=== PATIENT | male | born 1990 | race Caucasian/White ===

== ENCOUNTER 2021-11-15 09:51 | Emergency (ER) | payer SELFPAY ==
[2021-11-15] MEDS ORDERED: MECLIZINE HCL 12.5 MG TAB ONE (10:17)
[2021-11-15 10:36] LABS: Absolute Lymphocytes (CBC) 3.6 K/uL (0.7-4.9); Hematocrit 46.2 % (39.6-49.0); Lymphocytes % 36.3 % (15.3-44.8); MCV 90.8 fL (80-100); MPV 7.9 fL (7.6-11.3); RBC Red Blood Cell Count 5.09 M/uL (4.33-5.43)
--- NOTE | 2021-11-15 10:44 | RAD REPORT ---
EXAM DESCRIPTION: CT - Head Brain Wo Cont - 11/15/2021 10:15 am CLINICAL HISTORY: dizziness COMPARISON: No comparisons TECHNIQUE: All CT scans are performed using dose optimization technique as appropriate and may inclu de automated exposure control or mA/KV adjustment according to patient size. FINDINGS: No intracranial hemorrhage, hydrocephalus or extra-axial fluid collection.No areas of brai n edema or evidence of midline shift. The paranasal sinuses and mastoids are clear. The calvarium is intact. IMPRESSION: No acute intracranial abnormality.
--- NOTE | 2021-11-15 10:55 | RAD REPORT ---
EXAM DESCRIPTION: RAD - Chest Single View - 11/15/2021 10:46 am CLINICAL HISTORY: CHEST PAIN COMPARISON: No comparisons FINDINGS: Lines: None. Lungs: No evidence of edema or pneumonia. Pleural: No significant pleural effusions or pneumothorax. Cardiac: The heart size is within normal limits. Mediastinum: Within normal limits. Bones: No acute fractures. Other: None IMPRESSION: No acute cardiopulmonary disease.
[2021-11-15 11:19] LABS: ALT/SGPT 37 U/L (12-78); AST/SGOT 22 U/L (15-37); Albumin 4.2 g/dL (3.4-5.0); Alkaline Phosphatase 62 U/L (45-117); BUN Blood Urea Nitrogen 11 mg/dL (7-18); Bicarbonate 31 mmol/L (21-32); Bilirubin Direct 0.3 mg/dL (0-0.2); Bilirubin Total 1.2 mg/dL (0.2-1.0); Glomerular Filtration Rate 89 ml/min (=/>90); Glucose Level 112 mg/dL (74-106); Magnesium 2.2 mg/dL (1.8-2.4); NT PRO-BNP < 5 pg/mL (<125); Potassium 4.3 mmol/L (3.5-5.1); Protein, Total 7.6 g/dL (6.4-8.2); Sodium Level 139 mmol/L (136-145); Troponin High Sensitivity 3.5 pg/mL (<58.9)
[2021-11-15] MEDS ORDERED: LORAZEPAM 1 MG TABLET ONE (11:36)
[2021-11-15 13:13] LABS: Protime INR 0.99
--- NOTE | 2021-11-15 14:07 | RAD REPORT ---
EXAM DESCRIPTION: CT - Chest For Pe Angio - 11/15/2021 1:40 pm CLINICAL HISTORY: Chest pain. shortness of breath, chest pain, elevated d-dimer COMPARISON: <Comparisons> TECHNIQUE: CT angiogram of the pulmonary arteries was performed with MIP. All CT scans are performed using dose optimization technique as appropriate and may include automated exposure control or mA/KV adjustment according to patient size. FINDINGS: No evidence of pulmonary thromboembolism. No acute aortic finding demonstrated. The lungs are clear. No significant pericardial or pleural fluid. No concerning bony finding. IMPRESSION: No evidence of pulmonary thromboembolism. No acute lung findings.
--- NOTE | 2021-11-15 14:40 | ER ---
Nurse's Notes [facility] Name: Azeem Singh Age: 30 yrs Sex: Male : 1990 Arrival Date: 11/15/2021 Time: 09:54 Bed 7 Private MD: Diagnosis: Chest pain, unspecified;Palpitations Presentation: 11/15 09:57 Chief complaint: Patient states: I have been having chest pain for the last few weeks bm7 and my arm goes numb and I feel like my heart is skipping a beat. Coronavirus screen: At this time, the client does not indicate any symptoms associated with coronavirus-19. Ebola Screen: No symptoms or risks identified at this time. Initial Sepsis Screen: Does the patient meet any 2 criteria? No. Patient's initial sepsis screen is negative. Does the patient have a suspected source of infection? No. Patient's initial sepsis screen is negative. Risk Assessment: Do you want to hurt yourself or someone else? Patient reports no desire to harm self or others. Onset of symptoms is unknown. 09:57 Method Of Arrival: Ambulatory 7 09:57 Acuity: [place] 3 bm7 Triage Assessment: 09:59 General: Appears in no apparent distress. comfortable, Behavior is anxious. Pain: bm7 Denies pain. EENT: No deficits noted. No signs and/or symptoms were reported regarding the EENT system. Neuro: No deficits noted. Cardiovascular: Reports chest pain, palpitations, earlier today but not at the moment Denies shortness of breath, syncope, vomiting, Heart tones S1 S2 present Capillary refill < 3 seconds Patient's skin is warm and dry. Chest pain is denied is described as vague, pt not having any chest pain at the moment just earlier . Respiratory: No deficits noted. Denies cough, shortness of breath at rest, on exertion. GI: No deficits noted. No signs and/or symptoms were reported involving the gastrointestinal system. : No deficits noted. No signs and/or symptoms were reported regarding the genitourinary system. Derm: No deficits noted. No signs and/or symptoms reported regarding the dermatologic system. Musculoskeletal: No deficits noted. No signs and/or symptoms reported regarding the musculoskeletal system. Historical: - Allergies: :59 No Known Allergies; bm7 - Home Meds: :59 None [Active]; bm7 - PMHx: 09:59 None; bm7 - PSHx: 09:59 None; bm7 - Immunization history:: Adult Immunizations up to date, Client reports having NOT received the Covid vaccine. - Social history:: Smoking status: Reported history of juuling and/or vaping. Screenin:29 Abuse screen: Denies threats or abuse. Denies injuries from another. Nutritional mb8 screening: No deficits noted. Tuberculosis screening: No symptoms or risk factors identified. Fall Risk None identified. Assessment: 10:27 General: Appears in no apparent distress. comfortable, Behavior is cooperative, mb8 anxious. Pain: Complains of pain in chest Pain does not radiate. Pain began years ago. Cardiovascular: Reports chest pain, shortness of breath, Denies fatigue, lightheadedness, nausea, palpitations, syncope, vomiting, Heart tones S1 S2 Capillary refill < 3 seconds Pulses are all present. are 3+ in right radial artery and left radial artery Rhythm is sinus rhythm Chest pain is described as mild, is located in chest wall. Respiratory: No deficits noted. Breath sounds are clear bilaterally. 11:31 Reassessment: Patient and/or family updated on plan of care and expected duration. Pain mb8 level reassessed. Patient is alert, oriented x 3, equal unlabored respirations, skin warm/dry/pink. Patient states feeling better. 12:32 Reassessment: Patient and/or family updated on plan of care and expected duration. Pain mb8 level reassessed. Patient is alert, oriented x 3, equal unlabored respirations, skin warm/dry/pink. Patient denies pain at this time. Patient states feeling better. 13:32 Reassessment: Patient and/or family updated on plan of care and expected duration. Pain mb8 level reassessed. Patient is alert, oriented x 3, equal unlabored respirations, skin warm/dry/pink. Patient denies pain at this time. Patient states feeling better. 14:28 Reassessment: Patient and/or family updated on plan of care and expected duration. Pain mb8 level reassessed. Patient is alert, oriented x 3, equal unlabored respirations, skin warm/dry/pink. Patient states feeling better. Vital Signs: 09:57 BP 123 / 96; Pulse 83; Resp 16; Temp 98.2(TE); Pulse Ox 100% on R/A; Weight 74.84 kg bm7 (R); Height 5 ft. 10 in. (177.80 cm); Pain 0/10; 10:28 BP 122 / 93; Pulse 65; Resp 22; Pulse Ox 100% ; Pain 4/10; mb8 11:31 BP 143 / 99; Pulse 83; Resp 20; Pulse Ox 100% ; mb8 12:32 BP 123 / 86; Pulse 100; Resp 18; Pulse Ox 100% ; Pain 0/10; mb8 13:32 BP 125 / 93; Pulse 97; Resp 16; Pulse Ox 97% on R/A; Pain 0/10; mb8 14:28 BP 122 / 76; Pulse 101; Resp 16; Pulse Ox 99% ; Pain 0/10; mb8 09:57 Body Mass Index 23.67 (74.84 kg, 177.80 cm) bm7 Vitals: 10:28 Cardiac Rhythm Assessment Regular Sinus rhythm. mb8 13:32 Cardiac Rhythm Assessment Sinus rhythm. mb8 ED Course: 09:54 Patient arrived in ED. mr 09:59 Jovan Hardy PA is PHCP. jmm 09:59 Topher Marina DO is Attending Physician. jmm 09:59 Triage completed. bm7 09:59 Arm band placed on left wrist. bm7 10:03 Yang Avila, RN is Primary Nurse. mb8 10:17 CT Head Brain wo Cont In Process Unspecified. EDMS 10:30 Patient has correct armband on for positive identification. Placed in gown. Bed in low mb8 position. Call light in reach. Side rails up X2. Client placed on continuous cardiac and pulse oximetry monitoring. NIBP monitoring applied. residential monitor on. 10:30 No provider procedures requiring assistance completed. Patient maintains SpO2 mb8 saturation greater than 95% on room air. 10:48 XRAY Chest (1 view) In Process Unspecified. EDMS 13:42 CT Chest For PE Angio In Process Unspecified. EDMS 14:38 Hussain Valdes MD is Referral Physician. jmm 15:17 IV discontinued, intact, bleeding controlled, No redness/swelling at site. Pressure mb8 dressing applied. Administered Medications: 10:12 Drug: Meclizine 50 mg Route: PO; jd3 11:31 Follow up: Response: No adverse reaction mb8 11:30 Drug: Ativan (LORazepam) 1 mg Route: PO; mb8 Medication: 10:28 VIS not applicable for this client. mb8 Outcome: 14:39 Discharge ordered by . asya 15:18 Discharged to home ambulatory. mb8 15:18 Condition: stable 15:18 Discharge instructions given to patient, Instructed on discharge instructions, follow up and referral plans. no drinking with medication, no driving heavy equipment, medication usage, Demonstrated understanding of instructions, follow-up care, medications, Prescriptions given X 1. 15:18 Patient left the ED. mb8 Signatures: Dispatcher [employer] EDMS Jovan Hardy PA PA jmm Rivera, Mary mr SatnamPravin RN RN [email or web address] Ese Mcfarlane, RN RN bm7 Yang Avila RN RN mb8
--- NOTE | 2021-11-15 14:40 | EDPHYS ---
Physician Documentation [facility] Name: Azeem Singh Age: 30 yrs Sex: Male : 1990 Arrival Date: 11/15/2021 Time: 09:54 Bed 7 Private MD: ED Physician Topher Marina HPI: 11/15 10:03 This 30 yrs old Male presents to ER via Ambulatory with complaints of Chest Pain. jmm 10:03 Onset: The symptoms/episode began/occurred gradually. This is a 30-year-old male with jmm no known chronic medical conditions the presents emerged part with complaints of chest pain and palpitations beginning this morning around 930. Patient has had intermittent episodes similar to this since he was 23 he states. Patient did have an outpatient evaluation by cardiology which did not yield any diagnoses. Patient also states having some shortness of breath. Pain will radiate to his left arm. Also complains of dizziness which she describes as the room spinning. Historical: - Allergies: 09:59 No Known Allergies; bm7 - Home Meds: 09:59 None [Active]; bm7 - PMHx: 09:59 None; bm7 - PSHx: 09:59 None; bm7 - Immunization history:: Adult Immunizations up to date, Client reports having NOT received the Covid vaccine. - Social history:: Smoking status: Reported history of juuling and/or vaping. ROS: 10:03 Constitutional: Negative for fever, chills, and weight loss. jmm 10:03 Cardiovascular: Positive for chest pain. 10:03 Respiratory: Positive for shortness of breath. 10:03 Neuro: Positive for dizziness. 10:03 All other systems are negative. Exam: 10:03 Constitutional: This is a well developed, well nourished patient who is awake, alert, jmm and in no acute distress. Head/Face: atraumatic. 10:03 ENT: Moist Mucus Membranes Neck: Trachea midline, Supple Chest/axilla: Normal chest wall appearance and motion. 10:03 Abdomen/GI: Non distended Back: Normal ROM Skin: General appearance color normal MS/ Extremity: Moves all extremities, no obvious deformities appreciated, no edema noted to the lower extremities Neuro: Awake and alert Psych: Behavior is normal, Mood is normal, Patient is cooperative and pleasant 10:03 Eyes: Nystagmus: nystagmus with fast component noted, bilaterally. 10:03 Cardiovascular: Rate: normal, Rhythm: regular. 10:03 Respiratory: the patient does not display signs of respiratory distress, Respirations: normal, Breath sounds: are clear throughout. 10:40 ECG was reviewed by the Attending Physician. [facility] Vital Signs: 09:57 BP 123 / 96; Pulse 83; Resp 16; Temp 98.2(TE); Pulse Ox 100% on R/A; Weight 74.84 kg bm7 (R); Height 5 ft. 10 in. (177.80 cm); Pain 0/10; 10:28 BP 122 / 93; Pulse 65; Resp 22; Pulse Ox 100% ; Pain 4/10; mb8 11:31 BP 143 / 99; Pulse 83; Resp 20; Pulse Ox 100% ; mb8 12:32 BP 123 / 86; Pulse 100; Resp 18; Pulse Ox 100% ; Pain 0/10; mb8 13:32 BP 125 / 93; Pulse 97; Resp 16; Pulse Ox 97% on R/A; Pain 0/10; mb8 14:28 BP 122 / 76; Pulse 101; Resp 16; Pulse Ox 99% ; Pain 0/10; mb8 09:57 Body Mass Index 23.67 (74.84 kg, 177.80 cm) bm7 MDM: 10:03 Patient medically screened. [facility] 14:38 Data reviewed: vital signs, nurses notes. Counseling: I had a detailed discussion with [facility] the patient and/or guardian regarding: the historical points, exam findings, and any diagnostic results supporting the discharge/admit diagnosis, lab results, radiology results, the need for outpatient follow up, to return to the emergency department if symptoms worsen or persist or if there are any questions or concerns that arise at home. 11/15 10:04 Order name: Basic Metabolic Panel; Complete Time: 11:24 [facility] 11/15 10:04 Order name: CBC with Diff; Complete Time: 10:58 [facility] 11/15 10:04 Order name: D-Dimer; Complete Time: 13:24 [facility] 11/15 10:04 Order name: LFT's; Complete Time: 11:24 [facility] 11/15 10:04 Order name: Magnesium; Complete Time: 11:24 [facility] 11/15 10:04 Order name: NT PRO-BNP; Complete Time: 11:24 [facility] 11/15 10:04 Order name: PT-INR; Complete Time: 13:24 [facility] 11/15 10:04 Order name: Troponin HS; Complete Time: 11:24 [facility] 11/15 10:04 Order name: XRAY Chest (1 view); Complete Time: 10:58 [facility] 11/15 10:04 Order name: CT Head Brain wo Cont; Complete Time: 10:58 [facility] 11/15 11:47 Order name: Troponin HS: draw at 1; Complete Time: 13:32 [facility] 11/15 13:25 Order name: CT Chest For PE Angio; Complete Time: 14:15 [facility] 11/15 10:04 Order name: EKG; Complete Time: 10:05 [facility] 11/15 10:04 Order name: Cardiac monitoring; Complete Time: 10:14 [facility] 11/15 10:04 Order name: EKG - Nurse/Tech; Complete Time: 10:14 [facility] 11/15 10:04 Order name: IV Saline Lock; Complete Time: 10:27 [facility] 11/15 10:04 Order name: Labs collected and sent; Complete Time: 10:27 [facility] 11/15 10:04 Order name: O2 Per Protocol; Complete Time: 10:14 [facility] 11/15 10:04 Order name: O2 Sat Monitoring; Complete Time: 10:14 [facility] 11/15 10:39 Order name: Labs - recollect needed: recollect blue and green top; Complete Time: 10:51 bd EC:40 Rate is 100 beats/min. QRS [place] is Normal. [place] interval is normal. QRS interval is jmm normal. QT interval is normal. No Q waves. T waves are Normal. No ST changes noted. Reviewed by me. Administered Medications: 10:12 Drug: Meclizine 50 mg Route: PO; jd3 11:31 Follow up: Response: No adverse reaction mb8 11:30 Drug: Ativan (LORazepam) 1 mg Route: PO; mb8 Disposition: 22:58 Co-signature as Attending Physician, Topher Marina DO I agree with the assessment and ms3 plan of care. Disposition Summary: 11/15/21 14:39 Discharge Ordered Location: Home [facility] Condition: Stable jm Diagnosis - Chest pain, unspecified jmm - Palpitations jmm Followup: jmm - With: Hussain Valdes MD - When: 2 - 3 days - Reason: Recheck today's complaints, Continuance of care, Re-evaluation by your physician Discharge Instructions: - Discharge Summary Sheet jmm - Nonspecific Chest Pain, Adult jmm - Palpitations jm Forms: - Medication Reconciliation Form jmm - Thank You Letter jmm - Antibiotic Education jmm - Prescription Opioid Use jmm Prescriptions: - Hydroxyzine HCl 25 mg Oral Tablet - take 1 tablet by ORAL route every 6 hours As needed; 30 tablet; Refills: 0, jmm Product Selection Permitted Signatures: Dispatcher [employer] EDMS Mary Roberto Joel, PA PA jmm Pravin Hay RN RN jd3 Topher Marina DO DO ms3 Ese Mcfarlane, RN RN bm7 Yang Avila RN RN mb8
[2021-11-15 15:24] VITALS: TEMP 98.2
[2021-11-15 15:38] VITALS: BP 122/76; O2SAT 99
--- NOTE | 2021-11-16 10:54 | EKG ---
Test Date: 2021-11-15 Test Time: 10:12:11 Collection Manager: MEASUREMENT RESULTS: Intervals: Rate: 100 MA: 126 QRSD: 82 QT: 328 QTc: 423 [place]: P: 66 MA: 126 QRS: 76 T: 59 INTERPRETIVE STATEMENTS: Normal sinus rhythm Normal ECG No previous ECG available for comparison Electronically Signed On 11-16-21 10:50:30 CDT by Hussain Valdes
== END 2021-11-15 15:18 | disposition home or self-care (01) ==
LOC: ER 09:51
DX: R07.9 Chest pain, unspecified (principal); R00.2 Palpitations; R42 Dizziness and giddiness
CPT/HCPCS: 36415; 70450; 71045; 71275; 80048; 80076; 83735; 83880; 84484; 85025; 85379; 85610; 93005; 99284; J8597; Q9967

== ENCOUNTER 2022-02-07 00:58 | Emergency (ER) | payer SELFPAY ==
[2022-02-07] MEDS ORDERED: NA CHLORIDE 0.9% 1,000 ML ONE (01:26)
[2022-02-07] MEDS ORDERED: LORazepam 2 MG/ML VIAL ONE (01:26)
[2022-02-07 01:41] LABS: Urine Blood Negative (Negative); Urine Glucose Negative (Negative); Urine Protein Negative (Negative); Urine pH 7.5 (5.0-7.0)
[2022-02-07 02:06] LABS: Absolute Lymphocytes (CBC) 3.8 K/uL (0.7-4.9); Hematocrit 45.3 % (39.6-49.0); Lymphocytes % 48.7 % (15.3-44.8); MCV 92.1 fL (80-100); MPV 8.2 fL (7.6-11.3); RBC Red Blood Cell Count 4.92 M/uL (4.33-5.43)
[2022-02-07 02:07] LABS: Protime INR 0.92
[2022-02-07 02:07] LABS: Barbiturates NEGATIVE (NEGATIVE); Benzodiazepines NEGATIVE (NEGATIVE); Cocaine NEGATIVE (NEGATIVE); METHAMPHETAM NEGATIVE (NEGATIVE); Methadone NEGATIVE (NEGATIVE); Opiates NEGATIVE (NEGATIVE); Phencyclidine NEGATIVE (NEGATIVE); THC Cannibis NEGATIVE (NEGATIVE)
[2022-02-07 02:20] LABS: ALT/SGPT 39 U/L (12-78); AST/SGOT 17 U/L (15-37); Albumin 4.1 g/dL (3.4-5.0); Alkaline Phosphatase 70 U/L (45-117); BUN Blood Urea Nitrogen 9 mg/dL (7-18); Bicarbonate 30 mmol/L (21-32); Bilirubin Direct 0.1 mg/dL (0-0.2); Bilirubin Total 0.7 mg/dL (0.2-1.0); Glomerular Filtration Rate 87 ml/min (=/>90); Glucose Level 130 mg/dL (74-106); Potassium 3.1 mmol/L (3.5-5.1); Protein, Total 7.6 g/dL (6.4-8.2); Sodium Level 138 mmol/L (136-145)
[2022-02-07 02:51] LABS: Blood Morphology Comment NOT SEEN (NOT SEEN); Platelet Estimate ADEQ
[2022-02-07] MEDS ORDERED: POTASSIUM 25 MEQ EFFERV TAB ONE (03:09)
--- NOTE | 2022-02-07 03:19 | EDPHYS ---
Physician Documentation [facility] Name: Azeem Singh Age: 31 yrs Sex: Male : 1990 Arrival Date: 02/07/2022 Time: 00:58 Bed 6 Private MD: ED Physician Samir Chavez HPI: 02/06 01:30 This 31 yrs old Male presents to ER via Ambulatory with complaints of Breathing cp Difficulty. 01:30 The patient has shortness of breath at rest. Onset: The symptoms/episode began/occurred cp suddenly, tonight while lying down in bed. Duration: The symptoms are continuous, and are unchanged since they started. Associated signs and symptoms: Pertinent positives: numbness in extremities, left arm and left foot and right foot, Pertinent negatives: chest pain, non-productive cough, productive cough, diaphoresis, fever, vomiting. 02/07 01:30 Severity of symptoms: in the emergency department the symptoms are unchanged despite cp home interventions. Historical: - Allergies: 01:04 No Known Allergies; tw5 - Home Meds: 01:04 Unable to obtain [Active]; tw5 - PMHx: 01:04 Anxiety; tw5 - PSHx: 01:04 None; tw5 - Immunization history:: Flu vaccine is not up to date. It has been more than one year since last vaccine. - Social history:: Smoking status: Reported history of juuling and/or vaping. Patient uses. ROS: 01:33 Constitutional: Negative for body aches, chills, fever, poor PO intake. cp 01:33 Eyes: Negative for injury, pain, redness, and discharge. cp 01:33 ENT: Negative for drainage from ear(s), ear pain, sore throat, difficulty swallowing, difficulty handling secretions. 01:33 Cardiovascular: Negative for chest pain. 01:33 Respiratory: Positive for shortness of breath, at rest. Negative for cough, wheezing. 01:33 Abdomen/GI: Negative for abdominal pain, vomiting, diarrhea, constipation. 01:33 Neuro: Positive for numbness, of the right foot, left foot and left arm, Negative for altered mental status, headache, weakness. 01:33 All other systems are negative. Exam: 01:35 ECG was reviewed by the Attending Physician. cp 01:40 Constitutional: The patient appears in no acute distress, alert, awake, cp non-diaphoretic, non-toxic, well developed, well nourished, anxious. 01:40 Head/Face: Normocephalic, atraumatic. cp 01:40 Eyes: Periorbital structures: appear normal, Pupils: equal, round, and reactive to light and accomodation, Extraocular movements: intact throughout, Conjunctiva: normal, no exudate, no injection, Sclera: no appreciated abnormality, Lids and lashes: appear normal, bilaterally. 01:40 ENT: External ear(s): are unremarkable, Nose: is normal, Mouth: Lips: moist, Oral mucosa: pink and intact, moist, Posterior pharynx: Airway: no evidence of obstruction, patent, swelling, is not appreciated, erythema, is not appreciated, exudate, is not appreciated. 01:40 Neck: ROM/movement: is normal, is supple, without pain, no range of motions limitations, no nuchal rigidity. 01:40 Chest/axilla: Inspection: normal, Palpation: is normal, no crepitus, no tenderness. 01:40 Cardiovascular: Rate: tachycardic, Rhythm: regular. 01:40 Respiratory: the patient does not display signs of respiratory distress, Respirations: normal, no use of accessory muscles, no retractions, labored breathing, is not present, Breath sounds: are clear throughout, no decreased breath sounds, no stridor, no wheezing. 01:40 Abdomen/GI: Inspection: abdomen appears normal, Palpation: abdomen is soft and non-tender, in all quadrants. 01:40 Neuro: Orientation: to person, place \T\ time. Mentation: is normal, Cerebellar function: is grossly normal, Motor: moves all fours, strength is normal, Sensation: numbness, that is mild, of the right foot, left foot and left arm, Gait: is steady. 01:40 Psych: Behavior/mood is cooperative, anxious, Judgement / Insight is normal. Delusions/hallucinations are not present. Vital Signs: 00:59 BP 131 / 96; Pulse 123; Resp 18; Temp 98.7; Pulse Ox 95% on R/A; Weight 81.65 kg; tw5 Height 5 ft. 9 in. (175.26 cm); Pain 0/10; 02:03 BP 147 / 95; Pulse 94; Resp 15 S; Pulse Ox 96% on R/A; as6 02:53 BP 112 / 87; Pulse 87; Resp 16 S; Pulse Ox 98% on R/A; as6 00:59 Body Mass Index 26.58 (81.65 kg, 175.26 cm) tw5 MDM: 01:19 Patient medically screened. cp 03:19 Data reviewed: vital signs, nurses notes, lab test result(s), EKG, radiologic studies, cp plain films. 03:19 Differential diagnosis: Anxiety Reaction asthma, pneumonia, Pneumothorax Pulmonary cp Embolism. Test interpretation: by ED physician or midlevel provider: ECG, plain radiologic studies. Counseling: I had a detailed discussion with the patient and/or guardian regarding: the historical points, exam findings, and any diagnostic results supporting the discharge/admit diagnosis, lab results, radiology results, the need for outpatient follow up, a family practitioner, to return to the emergency department if symptoms worsen or persist or if there are any questions or concerns that arise at home. ED course: VSS. Patient reports symptoms markedly improved. Will discharge to home for continued monitoring. 02/07 01:22 Order name: Acetaminophen; Complete Time: 02:54 cp 02/07 01:22 Order name: Basic Metabolic Panel; Complete Time: 02:54 cp 02/07 02:54 Interpretation: Normal except: K 3.1; GLUC 130; GFR 87. cp 02/07 01:22 Order name: CBC with Diff; Complete Time: 02:54 cp 02/07 02:54 Interpretation: Normal except: RDW 12.0; ASHU% 40.6; LYM% 48.7. cp 02/07 01:22 Order name: ETOH Level; Complete Time: 02:54 cp 02/07 01:22 Order name: Hepatic Function; Complete Time: 02:54 cp 02/07 01:22 Order name: PT-INR; Complete Time: 02:54 cp 02/07 01:22 Order name: Ptt, Activated; Complete Time: 02:54 cp 02/07 01:22 Order name: Salicylate; Complete Time: 02:54 cp 02/07 01:22 Order name: Urine Drug Screen; Complete Time: 02:54 cp 02/07 02:55 Interpretation: Reviewed. 02/07 01:42 Order name: Urine Dipstick-Ancillary; Complete Time: 02:54 EDMS 02/07 02:22 Order name: Manual Differential; Complete Time: 02:54 EDMS 02/07 02:55 Interpretation: Normal except: SEGS 35; BANDS [F] 2. cp 02/07 02:56 Order name: XRAY Chest (1 view) cp 02/07 01:22 Order name: EKG; Complete Time: 01:22 cp 02/07 01:22 Order name: EKG - Nurse/Tech; Complete Time: 01:37 cp 02/07 01:22 Order name: IV Saline Lock; Complete Time: :37 cp 02/07 01:22 Order name: Labs collected and sent; Complete Time: :37 cp 02/07 01:22 Order name: Suicide Screening ([place]); Complete Time: :37 cp 02/07 01:22 Order name: Urine Dipstick-Ancillary (obtain specimen); Complete Time: :37 cp EC:35 Rate is 114 beats/min. Rhythm is regular. SC interval is normal. QRS interval is cp normal. QT interval is normal. T waves are Inverted in lead III. Interpreted by me. Reviewed by me. Administered Medications: 01:40 Drug: Ativan (LORazepam) 1 mg Route: IVP; Site: right antecubital; as6 03:25 Follow up: Response: No adverse reaction as6 01:40 Drug: NS 0.9% 1000 ml Route: IV; Rate: 1 bolus; Site: right antecubital; as6 03:24 Follow up: Response: No adverse reaction; IV Status: Completed infusion; IV Intake: as6 1000ml 03:11 Drug: Potassium Effervescent Tablet 50 mEq Route: PO; as6 03:24 Follow up: Response: No adverse reaction as6 Disposition Summary: 02/07/22 03:19 Discharge Ordered Location: Home cp Problem: an acute exacerbation cp Symptoms: have improved cp Condition: Stable cp Diagnosis - Anxiety disorder, unspecified cp - Hypokalemia cp Followup: cp - With: Private Physician - When: 2 - 3 days - Reason: Recheck today's complaints Discharge Instructions: - Discharge Summary Sheet cp - Generalized Anxiety Disorder, Adult cp - Managing Anxiety, Adult cp - Hypokalemia cp Forms: - Medication Reconciliation Form cp - Thank You Letter cp - Antibiotic Education cp - Prescription Opioid Use cp Prescriptions: - Hydroxyzine HCl 25 mg Oral Tablet - take 1 tablet by ORAL route every 6 hours As needed; 30 tablet; Refills: 0, cp Product Selection Permitted Addendum: 02/11/2022 07:51 Co-signature as Attending Physician, Samir Chavez MD I agree with the assessment and c chan plan of care. Signatures: Dispatcher [employer] Samir Wells MD MD cha Page, Corey, PA PA Marianna Alvarez tw5 Zacarias Barbour, RN RN as6 Corrections: (The following items were deleted from the chart) 02/07 03:00 02:58 Chest Single View+[email or web address] ordered. [facility]
--- NOTE | 2022-02-07 03:19 | ER ---
Nurse's Notes [facility] Name: Azeem Singh Age: 31 yrs Sex: Male : 1990 Arrival Date: 02/07/2022 Time: 00:58 Bed 6 Private MD: Diagnosis: Anxiety disorder, unspecified;Hypokalemia Presentation: 02/07 00:59 Chief complaint: Patient states: "I was trying to go to bed when I started to feel like tw5 I couldn't breath and my left arm started to go numb. That happens sometimes when I have bad anxiety, but this time it was worse.". Coronavirus screen: Vaccine status: Patient reports being unvaccinated. Ebola Screen: Patient negative for fever greater than or equal to 101.5 degrees Fahrenheit, and additional compatible Ebola Virus Disease symptoms Patient denies exposure to infectious person. Patient denies travel to an Ebola-affected area in the 21 days before illness onset. Initial Sepsis Screen: Does the patient meet any 2 criteria? HR > 90 bpm. Does the patient have a suspected source of infection? No. Patient's initial sepsis screen is negative. Risk Assessment: Do you want to hurt yourself or someone else? Patient reports no desire to harm self or others. Onset of symptoms was February 07, 2022 at 00:40. 00:59 Method Of Arrival: Ambulatory tw5 00:59 Acuity: [place] 3 tw5 Triage Assessment: 01:04 General: Appears in no apparent distress. Behavior is agitated, anxious, restless. tw5 Pain: Denies pain. Respiratory: Reports shortness of breath at rest Onset: The symptoms/episode began/occurred suddenly, the patient has mild shortness of breath. Derm: Skin is pale. Historical: - Allergies: 01:04 No Known Allergies; tw5 - Home Meds: 01:04 Unable to obtain [Active]; tw5 - PMHx: 01:04 Anxiety; - PSHx: 01:04 None; tw5 - Immunization history:: Flu vaccine is not up to date. It has been more than one year since last vaccine. - Social history:: Smoking status: Reported history of juuling and/or vaping. Patient uses. Screenin:48 Abuse screen: Denies threats or abuse. Denies injuries from another. Nutritional as6 screening: No deficits noted. Tuberculosis screening: No symptoms or risk factors identified. Fall Risk None identified. Assessment: 01:47 General: Appears slender, Behavior is anxious, restless. Pain: Denies pain. Neuro: as6 Level of Consciousness is awake, alert, obeys commands, Oriented to person, place, time, situation. Cardiovascular: Capillary refill < 3 seconds. Respiratory: Respiratory effort is even, unlabored. Derm: Skin is intact, is healthy with good turgor. 02:20 General: Behavior is calm, cooperative. as6 Vital Signs: 00:59 BP 131 / 96; Pulse 123; Resp 18; Temp 98.7; Pulse Ox 95% on R/A; Weight 81.65 kg; tw5 Height 5 ft. 9 in. (175.26 cm); Pain 0/10; 02:03 BP 147 / 95; Pulse 94; Resp 15 S; Pulse Ox 96% on R/A; as6 02:53 BP 112 / 87; Pulse 87; Resp 16 S; Pulse Ox 98% on R/A; as6 00:59 Body Mass Index 26.58 (81.65 kg, 175.26 cm) tw5 ED Course: 00:58 Patient arrived in ED. ja2 01:04 Triage completed. tw5 01:04 Arm band placed on. tw5 01:07 Zacarias Barbour, COURT is Primary Nurse. as6 01:18 Samir Gonzalez PA is PHCP. cp 01:18 Samir Chavez MD is Attending Physician. cp 01:30 Inserted saline lock: 20 gauge in right antecubital area, using aseptic technique. as6 Blood collected. 01:48 Bed in low position. Call light in reach. Side rails up X 1. as6 03:24 No provider procedures requiring assistance completed. IV discontinued, intact, as6 bleeding controlled, No redness/swelling at site. Pressure dressing applied. 03:28 XRAY Chest (1 view) In Process Unspecified. EDMS Administered Medications: 01:40 Drug: Ativan (LORazepam) 1 mg Route: IVP; Site: right antecubital; as6 03:25 Follow up: Response: No adverse reaction as6 01:40 Drug: NS 0.9% 1000 ml Route: IV; Rate: 1 bolus; Site: right antecubital; as6 03:24 Follow up: Response: No adverse reaction; IV Status: Completed infusion; IV Intake: as6 1000ml 03:11 Drug: Potassium Effervescent Tablet 50 mEq Route: PO; as6 03:24 Follow up: Response: No adverse reaction as6 Medication: 02:53 VIS not applicable for this client. as6 Intake: 03:24 IV: 1000ml; Total: 1000ml. as6 Outcome: 03:19 Discharge ordered by MD. cp 03:24 Discharged to home ambulatory, with friend. as6 03:24 Condition: stable 03:24 Discharge instructions given to patient, Instructed on discharge instructions, follow up and referral plans. medication usage, Demonstrated understanding of instructions, follow-up care, medications, Prescriptions given X 1. 03:25 Patient left the ED. as6 Signatures: Dispatcher [employer] EDMS Samir Gonzalez PA PA cp Alexander, Jessica ja2 Wood, Tiffany tw5 Zacarias Barbour RN RN as6 Corrections: (The following items were deleted from the chart) 01:46 01:40 Ativan (LORazepam) 1 mg IVP in right subclavian as6 as6
[2022-02-07 03:49] VITALS: TEMP 98.7
[2022-02-07 04:01] VITALS: BP 112/87; O2SAT 98
--- NOTE | 2022-02-07 14:33 | RAD REPORT ---
EXAM DESCRIPTION: RAD - Chest Single View - 02/07/2022 3:26 am CLINICAL HISTORY: Shortness of breath COMPARISON: Chest 1 View AP 11/15/2021 report without image CTA chest 11/15/2021 report without image Please notify me for addendum when old images are available. TECHNIQUE: Chest 1 View AP FINDINGS: Trachea midline. Heart size and pulmonary vessels within normal limits. Lungs clear without evidence of consolidation, mass, or significant pulmonary edema. No significant pleural effusion or pneumothorax. Bones unremarkable. IMPRESSION: Normal chest radiograph. Electronically signed by: Navjot Roldan MD 02/07/2022 5:45 AM [facility] Due to temporary technical issues with the PACS/Fluency reporting system, reports are being signed by the in house radiologists without review as a courtesy to insure prompt reporting. The interpreting radiologist is fully responsible for the content of the report.
--- NOTE | 2022-02-07 16:24 | EKG ---
Test Date: 2022-02-07 Test Time: 01:30:57 Senior Embedded Software Engineer: MEASUREMENT RESULTS: Intervals: Rate: 114 VT: 128 QRSD: 84 QT: 296 QTc: 407 [place]: P: 61 VT: 128 QRS: 82 T: 25 INTERPRETIVE STATEMENTS: Sinus tachycardia Otherwise normal ECG Compared to ECG 11/15/2021 10:12:11 Sinus rhythm no longer present Electronically Signed On 02-07-22 16:22:52 FARM MARKETER by Hussain Valdes
== END 2022-02-07 03:25 | disposition home or self-care (01) ==
LOC: ER 00:58
DX: F41.9 Anxiety disorder, unspecified (principal); E87.6 Hypokalemia
CPT/HCPCS: 36415; 71045; 80048; 80076; 80307; 80320; 80329; 81003; 85025; 85610; 85730; 93005; 96361; 96374; 99284; J7030

== ENCOUNTER 2022-02-11 13:56 | Emergency (ER) | payer SELFPAY ==
[2022-02-11] MEDS ORDERED: LORazepam 2 MG/ML VIAL ONE (14:26)
[2022-02-11] MEDS ORDERED: LORAZEPAM 1 MG TABLET ONE (15:00)
[2022-02-11 15:03] LABS: Absolute Lymphocytes (CBC) 1.9 K/uL (0.7-4.9); Hematocrit 44.1 % (39.6-49.0); Lymphocytes % 34.2 % (15.3-44.8); MCV 91.4 fL (80-100); MPV 7.5 fL (7.6-11.3); RBC Red Blood Cell Count 4.83 M/uL (4.33-5.43)
--- NOTE | 2022-02-11 15:13 | RAD REPORT ---
EXAM DESCRIPTION: RAD - Chest Single View - 02/11/2022 2:48 pm CLINICAL HISTORY: CHEST PAIN COMPARISON: Portable chest 02/07/2022 TECHNIQUE: AP portable chest image was obtained 02/11/2022 2:48 pm . FINDINGS: Lungs are clear. Heart and vasculature are normal. No measurable pleural effusion and no p neumothorax. No acute bony abnormality seen. No acute aortic findings suspected. IMPRESSION: No acute cardiopulmonary process. No significant change from comparison.
[2022-02-11 15:23] LABS: Troponin High Sensitivity 4.4 pg/mL (<58.9)
--- NOTE | 2022-02-11 15:58 | EDPHYS ---
Physician Documentation [facility] Name: Azeem Singh Age: 31 yrs Sex: Male : 1990 Arrival Date: 02/11/2022 Time: 13:56 Bed 14 Private MD: ED Physician Samir Chavez HPI: 02/11 14:29 This 31 yrs old Male presents to ER via Ambulatory with complaints of Chest Pain. kb 14:29 The patient or guardian reports chest pain that is located primarily in the anterior kb chest wall, left. The pain does not radiate. Associated signs and symptoms: Pertinent positives: shortness of breath. The chest pain is described as dull. Duration: The patient or guardian reports a single episode, that is still ongoing. Modifying factors: The symptoms are alleviated by nothing. the symptoms are aggravated by nothing. Severity of pain: At its worst the pain was moderate in the emergency department the pain is unchanged. The patient has not experienced similar symptoms in the past. The patient has not recently seen a physician. Pt reports left chest pain that started around 1200 today. States it feels similar to previous anxiety but wanted to get it checked out . Historical: - Allergies: 14:11 No Known Allergies; ld1 - PMHx: 14:11 Anxiety; ld1 - PSHx: 14:11 None; ld1 - Immunization history:: Adult Immunizations up to date, Client reports having NOT received the Covid vaccine. - Social history:: Smoking status: Patient denies any tobacco usage or history of. Patient/guardian denies using alcohol. ROS: 14:29 Constitutional: Negative for fever, chills, and weight loss. kb 14:29 Cardiovascular: Positive for chest pain. 14:29 Psych: Positive for anxiety. 14:29 All other systems are negative. Exam: 14:28 Constitutional: This is a well developed, well nourished patient who is awake, alert, kb and in no acute distress. Head/Face: Normocephalic, atraumatic. ENT: Moist Mucous membranes Cardiovascular: Regular rate and rhythm with a normal S1 and S2. No gallops, murmurs, or rubs. No pulse deficits. Respiratory: Respirations even and unlabored. No increased work of breathing. Talking in full sentences Abdomen/GI: Soft, non-tender. No distention Skin: Warm, dry with normal turgor. Normal color. MS/ Extremity: Pulses equal, no cyanosis. Neurovascular intact. Full, normal range of motion. Neuro: Awake and alert, GCS 15, oriented to person, place, time, and situation. Moves all extremities. Normal gait. 14:28 ECG was reviewed by the Attending Physician. Vital Signs: 14:10 BP 131 / 69; Pulse 75; Resp 18; Temp 98.3(O); Pulse Ox 100% on R/A; Weight 81.65 kg; ld1 Height 5 ft. 9 in. (175.26 cm); Pain 2/10; 16:44 BP 119 / 59; Pulse 83; Resp 16; Pulse Ox 100% on R/A; Pain 0/10; db 14:10 Body Mass Index 26.58 (81.65 kg, 175.26 cm) ld1 MDM: 14:06 Patient medically screened. kb 14:29 Data reviewed: vital signs, nurses notes. Data interpreted: Pulse oximetry: on room air kb is 100 %. Interpretation: normal. 15:53 Counseling: I had a detailed discussion with the patient and/or guardian regarding: the kb historical points, exam findings, and any diagnostic results supporting the discharge/admit diagnosis, lab results, radiology results, the need for outpatient follow up, a family practitioner, to return to the emergency department if symptoms worsen or persist or if there are any questions or concerns that arise at home. 15:56 Response to treatment: the patient's symptoms have resolved after treatment, the kb patient's pain is gone. ED course: Symptoms completely resolved after ativan. 02/11 14:11 Order name: Basic Metabolic Panel; Complete Time: 15:36 kb 02/11 14:11 Order name: CBC with Diff; Complete Time: 15:08 kb 02/11 14:11 Order name: Troponin HS; Complete Time: 15:36 kb 02/11 14:11 Order name: XRAY Chest (1 view); Complete Time: 15:20 kb 02/11 14:11 Order name: EKG; Complete Time: 14:12 kb 02/11 14:11 Order name: EKG - Nurse/Tech; Complete Time: 14:51 kb 02/11 14:11 Order name: IV Saline Lock; Complete Time: 15:01 kb 02/11 14:11 Order name: Labs collected and sent; Complete Time: 15:02 kb EC:28 Rate is 80 beats/min. Rhythm is regular. QRS [place] is Normal. LA interval is normal at kb 126 msec. QRS interval is normal at 84 msec. QT interval is normal at 399 msec. Administered Medications: 15:01 Drug: Ativan (LORazepam) 1 mg Route: PO; db 16:44 Follow up: Response: No adverse reaction db Disposition Summary: 02/11/22 15:57 Discharge Ordered Location: Home kb Condition: Stable kb Diagnosis - Chest pain, unspecified kb - Anxiety disorder, unspecified kb Followup: kb - With: Emergency Department - When: As needed - Reason: Worsening of condition Followup: kb - With: Private Physician - When: 2 - 3 days - Reason: Recheck today's complaints, Continuance of care, Re-evaluation by your physician Discharge Instructions: - Discharge Summary Sheet kb - Nonspecific Chest Pain, Adult, [id number] kb - Panic Attack, [id number] kb - Generalized Anxiety Disorder, Adult kb Forms: - Medication Reconciliation Form kb - Thank You Letter kb - Antibiotic Education kb - Prescription Opioid Use kb Signatures: Dispatcher [employer] EDMD Madelin Bauer, LINER WORKER-C LINER WORKER-Christy Ward, RN RN ld1 Diana Ferreira, RN RN db
--- NOTE | 2022-02-11 15:58 | ER ---
Nurse's Notes [facility] Name: Azeem Singh Age: 31 yrs Sex: Male : 1990 Arrival Date: 02/11/2022 Time: 13:56 Bed 14 Private MD: Diagnosis: Chest pain, unspecified;Anxiety disorder, unspecified Presentation: 02/11 14:10 Chief complaint: Patient states: Chest pain began this morning. Coronavirus screen: At ld1 this time, the client does not indicate any symptoms associated with coronavirus-19. Ebola Screen: No symptoms or risks identified at this time. Initial Sepsis Screen: Does the patient meet any 2 criteria? No. Patient's initial sepsis screen is negative. Does the patient have a suspected source of infection? No. Patient's initial sepsis screen is negative. Initial Sepsis Screen: Does the patient have a suspected source of infection?. Risk Assessment: Do you want to hurt yourself or someone else? Patient reports no desire to harm self or others. Onset of symptoms was February 11, 2022. 14:10 Method Of Arrival: Ambulatory ld1 14:10 Acuity: [place] 3 ld1 Triage Assessment: 14:11 General: Appears in no apparent distress. comfortable, Behavior is calm, cooperative, ld1 appropriate for age. Pain: Complains of pain in chest Pain currently is 2 out of 10 on a pain scale. at worst was 8 out of 10 on a pain scale. Quality of pain is described as sharp, throbbing. EENT: No signs and/or symptoms were reported regarding the EENT system. Neuro: Level of Consciousness is awake, alert, obeys commands, Oriented to person, place, time, situation. Cardiovascular: Capillary refill < 3 seconds Patient's skin is warm and dry. Rhythm is sinus rhythm. Respiratory: Airway is patent Respiratory effort is even, unlabored. GI: Abdomen is flat, non-distended. : No signs and/or symptoms were reported regarding the genitourinary system. Derm: No signs and/or symptoms reported regarding the dermatologic system. Musculoskeletal: No signs and/or symptoms reported regarding the musculoskeletal system. Historical: - Allergies: 14:11 No Known Allergies; ld1 - PMHx: 14:11 Anxiety; ld1 - PSHx: 14:11 None; ld1 - Immunization history:: Adult Immunizations up to date, Client reports having NOT received the Covid vaccine. - Social history:: Smoking status: Patient denies any tobacco usage or history of. Patient/guardian denies using alcohol. Screenin:00 Abuse screen: Denies threats or abuse. Denies injuries from another. Nutritional db screening: No deficits noted. Tuberculosis screening: No symptoms or risk factors identified. Fall Risk None identified. No fall in past 12 months (0 pts). No secondary diagnosis (0 pts). IV access (20 points). Ambulatory Aid- None/Bed Rest/Nurse Assist (0 pts). Gait- Normal/Bed Rest/Wheelchair (0 pts) Mental Status- Oriented to own ability (0 pts). Total Chauhan Fall Scale indicates No Risk (0-24 pts). Assessment: 15:02 Reassessment: Patient appears in no apparent distress at this time. Patient and/or db family updated on plan of care and expected duration. Pain level reassessed. Patient is alert, oriented x 3, equal unlabored respirations, skin warm/dry/pink. chest pain that comes and goes for several weeks with feelings of anxiety. denies pain at this time. Pain: Pain does not radiate. Pain radiates to chest Pain began weeks. 16:00 Reassessment: Patient appears in no apparent distress at this time. Patient and/or db family updated on plan of care and expected duration. Pain level reassessed. Patient is alert, oriented x 3, equal unlabored respirations, skin warm/dry/pink. Patient states feeling better. Patient states symptoms have improved. Neuro: No deficits noted. Level of Consciousness is awake, alert, obeys commands, Oriented to person, place, time, situation, Appropriate for age Speech is normal, Pupils are PERRLA. Cardiovascular: No deficits noted. Capillary refill < 3 seconds. Respiratory: No deficits noted. Airway is patent. Vital Signs: 14:10 BP 131 / 69; Pulse 75; Resp 18; Temp 98.3(O); Pulse Ox 100% on R/A; Weight 81.65 kg; ld1 Height 5 ft. 9 in. (175.26 cm); Pain 2/10; 16:44 BP 119 / 59; Pulse 83; Resp 16; Pulse Ox 100% on R/A; Pain 0/10; db 14:10 Body Mass Index 26.58 (81.65 kg, 175.26 cm) ld1 ED Course: 13:56 Patient arrived in ED. mr 14:01 Madelin Bauer FNP-C is [facility]. kb 14:01 Samir Chavez MD is Attending Physician. kb 14:11 Triage completed. ld1 14:11 Arm band placed on right wrist. ld1 14:21 Diana Ferreira, RN is Primary Nurse. db 14:50 XRAY Chest (1 view) In Process Unspecified. EDMS 14:51 Inserted saline lock: 20 gauge in left forearm, using aseptic technique. mb9 14:51 Missed attempt(s): 20 gauge in right forearm. rs5 14:52 EKG done, by ED staff. rs5 15:03 Initial lab(s) drawn, by me. db 16:00 Patient has correct armband on for positive identification. Bed in low position. Side db rails up X 1. Client placed on continuous cardiac and pulse oximetry monitoring. NIBP monitoring applied. 16:00 No provider procedures requiring assistance completed. Patient maintains SpO2 db saturation greater than 95% on room air. 16:44 IV discontinued, intact, bleeding controlled, No redness/swelling at site. db Administered Medications: 15:01 Drug: Ativan (LORazepam) 1 mg Route: PO; db 16:44 Follow up: Response: No adverse reaction db Medication: 16:57 VIS not applicable for this client. db Outcome: 15:57 Discharge ordered by MD. kb 16:44 Discharged to home ambulatory. db 16:44 Condition: stable 16:44 Discharge instructions given to patient, family, Instructed on discharge instructions, Demonstrated understanding of instructions. 16:57 Patient left the ED. db Signatures: Dispatcher [employer] EDNV Madelin Bauer FNP-C FNP-Sea Bee Rainey mr NolaChristy, RN RN ld1 Diana Ferreira, RN RN Bee Carolina, RN RN mb9 Arcenio Hearn rs5
[2022-02-11 17:18] VITALS: TEMP 98.3; O2SAT 100
[2022-02-11 17:19] VITALS: BP 119/59
--- NOTE | 2022-02-12 13:46 | EKG ---
Test Date: 2022-02-11 Test Time: 14:40:34 Unified Communications Engineer: BALJINDER MEASUREMENT RESULTS: Intervals: Rate: 78 WI: 128 QRSD: 82 QT: 346 QTc: 394 [place]: P: 65 WI: 128 QRS: 84 T: 89 INTERPRETIVE STATEMENTS: Normal sinus rhythm with sinus arrhythmia Nonspecific T wave abnormality Abnormal ECG Compared to ECG 02/11/2022 14:15:02 T-wave abnormality now present ST (T wave) deviation no longer present Electronically Signed On 02-12-22 13:45:12 LINE SERVICE PERSON by Sudheer Hoang
--- NOTE | 2022-02-12 13:46 | EKG ---
Test Date: 2022-02-11 Test Time: 14:15:02 Heat Treat Puller: BALJINDER MEASUREMENT RESULTS: Intervals: Rate: 77 NE: 126 QRSD: 86 QT: 350 QTc: 396 [place]: P: 71 NE: 126 QRS: 86 T: 104 INTERPRETIVE STATEMENTS: Normal sinus rhythm with sinus arrhythmia Nonspecific ST and T wave abnormality Abnormal ECG Compared to ECG 02/07/2022 01:30:57 ST (T wave) deviation now present Sinus tachycardia no longer present Electronically Signed On 02-12-22 13:45:14 DRUG DISCOVERY INFORMATICS SPECIALIST by Sudheer Hoang
== END 2022-02-11 16:57 | disposition home or self-care (01) ==
LOC: ER 13:56
DX: F41.9 Anxiety disorder, unspecified (principal)
CPT/HCPCS: 36415; 71045; 80048; 84484; 85025; 93005; 99285

== ENCOUNTER → 2023-03-04 | Emergency (ER) | payer SELFPAY ==
[~2023-03-04] MED LIST: DIAZEPAM 5 MG TABLET ONE; HYDROMORPHONE HCL 1 MG/ML INJ ONE; SILVER SULFADIAZINE 1% 25 GM TOP ONE; TDAP (DIPHTH,PERTUSS(ACELL),TET VAC) 0.5 ML VIAL IMVAC ONE
--- OUTSIDE RECORDS SUMMARY | 2023-03-04 10:00 | XMS REPORT | Continuity of Care Document ---
Author Name Unknown Address [address] [place] [address] [facility] thconnect Address [address] [place] [address] Care Team Providers Care Operations Administrative Assistant Name Role Phone Pcp, Patient Does Not Have A Primary Care Physic suzanne TOMÁS ROUSSEAU Attending Clinician UnavailTomás Uriostegui MD K.HFred Attending Clinician [phone] Doctor Unassigned, [place] Attending Clinician U Shilpa Izaguirre MD Attending Clinician SHILPA HENLEY Attending Clinician Unavailable SHILPA HENLEY Admitting Clinician Unavailable Allergies, Adverse Reactions, Alerts Allergy Name Allergy Type Status Severity Reaction(s) Onset Date Inactive Date Treating Clinician Comments Source NO KNOWN ALLERGIE S Drug Class Active [facility] Social History Social Habit Start Date Stop Date Quantity Comments Source Exposure to SARS-CoV-2 (event) 2022-07-02 00:00:00 2022-07-12 09:45:00 Not sure [facility] Sex Assigned At 1990 00:00:00 1990 00:00:00 [facility] Smoking Status Start Date Stop Date Source Tobacco smoking consumption unknown [facility] Vital Signs Vital Name Observation Time Observation Value Comments Castillo ruano Systolic blood pressure 2022-07-12 15:02:00 113 mm[Hg] [facility] acute hospital Diastolic blood pressure 2022-07-12 15:02:00 77 mm[Hg] General acute hospital Heart rate 2022-07-12 15:02:00 74 /min [facility] Body temperature 2022-07-12 15:02:00 36.89 Fernanda [facility] Body height 2022-07-12 15:02:00 175.3 cm [facility] Body weight 2022-07-12 15:02:00 78.563 kg [facility] BMI 2022-07-12 15:02:00 25.58 kg/m2 [facility] Oxygen saturation in Arterial blood by Pulse oximetry 2022-07-12 15:02:00 97 /min General acute hospital Systolic blood pressure 2022-06-08 03:19:47 121 mm[Hg] General acute hospital Diastolic blood pressure 2022-06-08 03:19:47 71 mm[Hg] General acute hospital Heart rate 2022-06-08 03:19:47 75 /min [facility] Body temperature 2022-06-08 03:19:47 36.17 Fernanda [facility] Respiratory rate 2022-06-08 03:19:47 16 /min [facility] Oxygen saturation in Arterial blood by Pulse oximetry 2022-06-08 03:19:47 97 /min General acute hospital Body height 2022-06-08 00:02:00 175.3 cm [facility] Body weight 2022-06-08 00:02:00 77.111 kg [facility] BMI 2022-06-08 00:02:00 25.10 kg/m2 [facility] Procedures Procedure Date / Time Performed Performing Clinician Source CONSENT/REFUSAL FOR DIAGNOSIS AND TREATMENT 2022-07-12 14:46:25 Doctor Unassigned, [place] [facility] EKG-12 LEAD 2022-06-08 03:13:49 Shilpa Henley [facility] TROPONIN I 2022-06-08 01:20:00 Shilpa Henley [facility] COMP. METABOLIC PANEL ([id number]) 2022-06-08 01:20:00 Shilpa Henley [facility] URINE DRUG (IMMUNOASSAY) - COMPREHENSIVE DRUG SCREEN 2022-06-08 01:20:00 Shilpa Henley [facility] CBC WITH DIFF 2022-06-08 01:20:00 Shilpa Henley [facility] D-DIMER 2022-06-08 01:20:00 Shilpa Henley [facility] N-TERMINAL PRO-BNP 2022-06-08 01:20:00 Shilpa Henley [facility] NOTICE OF PRIVACY PRACTICES 2022-06-07 23:58:59 Doctor Unassigned, [place] [facility] CONSENT/REFUSAL FOR DIAGNOSIS AND TREATMENT 2022-06-07 23:58:28 Doctor Unassigned, [place] [facility] Encounters Start Date/Time End Date/Time Encounter Type Admission Type Attending [facility] Care Department Encounter ID Source 2022-08-08 10:00:00 2022-08-08 10:00:00 Outpatient TOMÁS RUBIO [facility] [id number] [facility] 2022-07-12 10:00:00 2022-07-12 10:22:01 Outpatient TOMÁS RUBIO [facility] [id number] [facility] 2022-07-12 10:00:00 2022-07-12 10:22:01 Office Visit Tomás Rousseau [facility] 1..840.114 [id number] [id number] [facility] 2022-07-12 00:00:00 2022-07-12 00:00:00 Orders Only Doctor Unassigned, [place] [facility] 1..840.114 [id number] [id number] [facility] 2022-06-07 19:10:00 2022-06-07 22:30:00 Emergency Shilpa Henley [facility] 1.840.114 [id number] [id number] [id number] [facility] 2022-06-07 19:10:00 2022-06-07 22:30:00 Emergency X SHILPA HENLEY [facility] ERT [id number] [facility] Results Test Description Test Time Test Comments Results Result Co mments Source [id number] 02:12:38* Test Item Value Reference Range Interpretation Comme nts TROPONIN I (test code = 5022557665) 0.000 ng/mL <=0.034 LEV (test code = LEV) Reference (Normal) Range (defined by the 99th percentile reference limit): <= 0.034 ng/mL Note: Cardiac troponin begins to rise 3-4 hours after the onset of ischemia. Repeat in 4-6 hours if the sample was drawn within 3-4 hours of the onset of the symptom and found normal. Diagnosis of myocardial injury is made with acute changes in cTn concentrations with at least one serial sample above the 99th percentile upper reference limit (URL), taken together with the patient's clinical presentation. Biotin has been reported to cause a negative bias, interpret results relative to patient's use of biotin. Lab Interpretation (test code = 04035-5) [facility] ([id number])2022-06-08 01:58:56* Test Item Value Reference Range Interpretation Comme nts NA (test code = 1759014730) 139 mmol/L 135-145 K (test code = 4849618214) 4.0 mmol/L 3.5-5.0 CL (test code = 9938079894) 100 mmol/L 98-108 CO2 TOTAL (test code = 5545744453) 31 mmol/L 23-31 AGAP (test code = 2635787366) 8 2-16 BUN (test code = 9435946009) 12 mg/dL 7-23 GLUCOSE (test code = 3120702845) 69 mg/dL 70-110 L CREATININE (test code = 9125127842) 0.86 mg/dL 0.60-1.25 TOTAL BILI (test code = 9619110933) 1.2 mg/dL 0.1-1.1 H CALCIUM (test code = 0436956467) 9.1 mg/dL 8.6-10.6 T PROTEIN (test code = 1580624204) 7.5 g/dL 6.3-8.2 ALBUMIN (test code = 2832048921) 4.5 g/dL 3.5-5.0 ALK PHOS (test code = 4250413714) 51 U/L 34-122 ALTv (test code = 1742-6) 30 U/L 5-50 AST(SGOT) (test code = 8087155022) 27 U/L 13-40 eGFR (test code = 6944760800) 103.1 mL/min/1.73m2 LEV (test code = LEV) Association of Glomerular Filtration Rate (GFR) and Staging of Kidney Disease* + --+ --+ ------+| GFR (mL/min/1.73 m2) ?| With Kidney Damage ?| ?Without Kidney Damage+ --------+ --------+ +| ?>90 ?| ?Stage one ?| ? Normal ?+ ---+ ---+ -------+| ?60-89 ?| ?Stage two ?| ? Decreased GFR ? + --+ --+ ------+| ?30-59 ?| ?Stage three ?| ? Stage three ? + --+ --+ ------+| ?15-29 ?| ?Stage four ? | ? Stage four ?+ ---+ ---+ -------+| ?<15 (or dialysis) ? ?| ?Stage five ? | ? Stage five ?+ ---+ ---+ -------+ *Each stage assumes the associated GFR level has been in effect for at least three months. ?Stages 1 to 5, with or without kidney disease, indicate chronic kidney disease. Notes: Determination of stages one and two (with eGFR >59mL/min/1.73 m2) requires estimation of kidney damage for at least three months as defined by structural or functional abnormalities of the kidney, manifested by either:Pathological abnormalities or Markers of kidney damage (including abnormalities in the composition of the blood or urine or abnormalities in imaging tests). Lab Interpretation (test code = 30608-9) [facility]normal [id number] 01:56:34* Test Item Value Reference Range Interpretation Comments D-DIMER (test code = 2908728325) 0.39 See_Comment [Automated message] The system which generated this result transmitted reference range: <0.41 ?g/mL (FEU). The reference range was not used to interpret this result as normal/abnormal. LEV (test code = LEV) This test may be used in conjunction with a clinical pretest probability (PTP) assessment model to exclude venous thromboembolism (VTE) in patients suspected of deep venous thrombosis (DVT) and pulmonary embolism (PE) A D-Dimer value less than 0.50 ?g/ml (FEU) has a negative predicative value of 96 to 100% (95% CI)and 97 to 100% (95% CI) as an aid in the diagnosis of deep vein thrombosis (DVT) and pulmonary embolism when there is low or moderate pretest probability of PE or DVT. D-Dimer values are expressed in initial fibrinogen equivalent units (FEU)" The assay results should be used with other information, including the clinical context, in forming a diagnosis. Lab Interpretation (test code = 40206-2) Normal [facility] WITH [id number] 01:45:34* Test Item Value Reference Range Interpretation Comme nts WBC (test code = 6690-2) 6.73 See_Comment [Automated [employer]] The system which generated this result transmitted reference range: 4.20 - 10.70 10*3/?L. The reference range was not used to interpret this result as normal/abnormal. RBC (test code = 789-8) 4.74 See_Comment [Automated [employer]] The system which generated this result transmitted reference range: 4.26 - 5.52 10*6/?L. The reference range was not used to interpret this result as normal/abnormal. HGB (test code = 718-7) 15.0 g/dL 12.2-16.4 HCT (test code = 4544-3) 44.1 % 38.4-49.3 MCV (test code = 787-2) 93.0 fL 81.7-95.6 MCH (test code = 785-6) 31.6 pg 26.1-32.7 MCHC (test code = 786-4) 34.0 g/dL 31.2-35.0 RDW-SD (test code = 17476-7) 39.5 fL 38.5-51.6 RDW-CV (test code = 788-0) 11.6 % 12.1-15.4 L PLT (test code = 777-3) 257 See_Comment [Automated messa ge] The system which generated this result transmitted reference range: 150 - 328 10*3/?L. The reference range was not used to interpret this result as normal/abnormal. MPV (test code = 79777-7) 10.0 fL 9.8-13.0 NRBC/100 WBC (test code = 3318575304) 0.0 See_Comment [Automated me ssage] The system which generated this result transmitted reference range: 0.0 - 10.0 /100 WBCs. The reference range was not used to interpret this result as normal/abnormal. NRBC x10^3 (test code = 7491005084) See_Comment [Automated messa ge] The system which generated this result transmitted reference range: 10*3/?L. The reference range was not used to interpret this result as normal/abnormal. GRAN MAT (NEUT) % (test code = 770-8) 64.5 % IMM GRAN % (test code = 5850509991) 0.30 % LYMPH % (test code = 736-9) 23.2 % MONO % (test code = 5905-5) 7.7 % EOS % (test code = 713-8) 3.4 % BASO % (test code = 706-2) 0.9 % GRAN MAT x10^3(ANC) (test code = 2553456350) 4.34 10*3/uL 1.99-6.95 IMM GRAN x10^3 (test code = 5808584759) 0.00-0.06 LYMPH x10^3 (test code = 731-0) 1.56 10*3/uL 1.09-3.23 MONO x10^3 (test code = 742-7) 0.52 10*3/uL 0.36-1.02 EOS x10^3 (test code = 711-2) 0.23 10*3/uL 0.06-0.53 BASO x10^3 (test code = 704-7) 0.06 10*3/uL 0.01-0.09 Lab Interpretation (test code = 35550-0) Abnormal [facility]
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
[2023-03-04 11:10] VITALS: BP 137/85; TEMP 98; O2SAT 99
== END ==
LOC: ER 09:57
DX: T21.24XA Burn of second degree of lower back, initial encounter (principal); T31.0 Burns involving less than 10% of body surface
CPT/HCPCS: 96372; 99285; J1170

== ENCOUNTER 2023-07-10 21:09 | Emergency (ER) | payer OTHER, SELFPAY ==
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
[2023-07-10] MEDS ORDERED: ASPIRIN 81 MG CHEWABLE TABLET ONE (21:46)
[2023-07-10] MEDS ORDERED: DIAZEPAM 5 MG TABLET ONE (21:47)
--- NOTE | 2023-07-10 22:06 | RAD REPORT ---
EXAM DESCRIPTION: RAD - Chest Single View - 07/10/2023 10:00 pm CLINICAL HISTORY: CHEST PAIN Chest pain. COMPARISON: Chest Single View dated 05/15/2023; Chest Single View dated 02/11/2022; Chest Single View d ated 02/07/2022; Chest Single View dated 11/15/2021 FINDINGS: Portable technique limits examination quality. The lungs are grossly clear. The heart is normal in size. No displaced fractures. IMPRESSION: No acute intrathoracic process suspected.
[2023-07-10 22:17] LABS: Absolute Eosinophils 0.3 K/uL (0-0.5); Absolute Monocytes 0.4 K/uL (0.1-1.3); Absolute Neutrophil 4.2 K/uL (1.8-8.0); Basophils % 0.4 % (0-1.3); Eosinophils % 3.9 % (0-4.4); Hematocrit 43.5 % (39.6-49.0); Hemoglobin 14.9 g/dL (13.6-17.9); Lymphocytes % 37.7 % (15.3-44.8); MCH 31.7 pg (27.0-35.0); MCHC 34.3 g/dL (32.0-36.0); MCV 92.4 fL (80-100); MPV 8.7 fL (7.6-11.3); Monocytes % 5.6 % (3.3-12.3); Neutrophils % 52.4 % (41.7-73.7); Nucleated Red Blood Cells % 0.1 % (0-0); Platelets 248 thou/uL (152-406); RBC Red Blood Cell Count 4.71 M/uL (4.33-5.43)
[2023-07-10 22:35] LABS: ALT/SGPT 32 U/L (16-61); AST/SGOT 15 U/L (15-37); Albumin 4.1 g/dL (3.4-5.0); Albumin/Globulin Ratio 1.2 (1.1-1.8); Alkaline Phosphatase 76 U/L (45-117); Anion Gap 8.4 mEq/L (5.0-15.0); BUN Blood Urea Nitrogen 14 mg/dL (7-18); Bicarbonate 31 mEq/L (21-32); Bilirubin Direct 0.2 mg/dL (0-0.2); Bilirubin Indirect, Calculated 0.5 mg/dL (0.2-0.8); Bilirubin Total 0.7 mg/dL (0.2-1.0); Globulin 3.3 g/dL (2.3-3.5); Glomerular Filtration Rate 82 ml/min (=/>90); Glucose Level 115 mg/dL (74-106); Magnesium 1.9 mg/dL (1.6-2.4); NT PRO-BNP < 5 pg/mL (<125); Potassium 4.4 mEq/L (3.5-5.1); Protein, Total 7.4 g/dL (6.4-8.2); Sodium Level 140 mEq/L (136-145); Troponin High Sensitivity 3.1 pg/mL (<58.9)
[2023-07-10 22:44] LABS: PT Prothrombin Time 10.9 SECONDS (9.5-12.5); Protime INR 0.99
--- NOTE | 2023-07-10 23:41 | EDPHYS ---
Physician Documentation [facility] Name: Azeem Singh Age: 32 yrs Sex: Male : 1990 Arrival Date: 07/10/2023 Time: 21:09 Bed 17 Private MD: ED Physician Sim Evans HPI: 07/09 21:21 This 32 yrs old Other Race Male presents to ER via Ambulatory with complaints of sp4 Breathing Difficulty. 23:44 32-year-old male presents with acute symptoms of chest pain, numbness, difficulty sp4 breathing, and palpitations. Patient reports vaping and nicotine. . Historical: - Allergies: 21:17 No Known Allergies; jj7 - PMHx: 21:17 Anxiety; jj7 - PSHx: 21:17 None; jj7 - Immunization history:: Adult Immunizations not up to date. - Infectious Disease History:: Denies. - Social history:: Smoking status: Reported history of juuling and/or vaping. Patient/guardian denies using alcohol, street drugs. - Family history:: not pertinent. ROS: 23:44 Constitutional: Negative for fever, chills, and weight loss, positive palpitations sp4 positive chest pain positive dyspnea positive numbness 23:44 All other systems are negative, Exam: 23:44 Constitutional: This is a well developed, well nourished patient who is awake, alert, sp4 and in no acute distress. Head/Face: Normocephalic, atraumatic. Eyes: Pupils equal round and reactive to light, extra-ocular motions intact. Lids and lashes normal. Conjunctiva and sclera are not injected. Cornea within normal limits. Periorbital areas with no swelling, redness, or edema. ENT: Nares patent. No nasal discharge, no septal abnormalities noted. Tympanic membranes are normal and external auditory canals are clear. Oropharynx with no redness, swelling, or masses, exudates, or evidence of obstruction, uvula midline. Mucous membranes moist. Neck: Trachea midline, no thyromegaly or masses palpated, and no cervical lymphadenopathy. Supple, full range of motion without nuchal rigidity, or vertebral point tenderness. Chest/axilla: Normal chest wall appearance and motion. Nontender with no deformity. No lesions are appreciated. Cardiovascular: Regular rate and rhythm with a normal S1 and S2. No gallops, murmurs, or rubs. Normal PMI, no JVD. No pulse deficits. Respiratory: Lungs have equal breath sounds bilaterally, clear to auscultation and percussion. No rales, rhonchi or wheezes noted. No increased work of breathing, no retractions or nasal flaring. Abdomen/GI: Soft, with normal bowel sounds. No distension or tympany. No guarding or rebound. No evidence of tenderness throughout. Back: No spinal tenderness. No costovertebral tenderness. Skin: Warm, dry with normal turgor. Normal color with no rashes, no lesions, and no evidence of cellulitis. MS/ Extremity: Pulses equal, no cyanosis. Neurovascular intact. Full, normal range of motion. Neuro: Awake and alert, GCS 15, oriented to person, place, time, and situation. Cranial nerves II-XII grossly intact. Motor strength 5/5 in all extremities. Sensory grossly intact. Psych: Awake, alert, with orientation to person, place and time. Behavior, mood, and affect are within normal limits 23:44 ECG was reviewed by the Attending Physician. 21:56 normal sinus rhythm normal EKG rate sp4 66 Vital Signs: 21:15 BP 137 / 89; Pulse 92; Resp 18; Temp 98; Pulse Ox 100% ; Weight 79.38 kg; Height 5 ft. jj7 10 in. ; Pain 5/10; 22:15 BP 115 / 77; Pulse 80; Resp 16; Pulse Ox 100% ; jj7 23:15 BP 126 / 73; Pulse 76; Resp 17; Pulse Ox 100% ; jj7 23:50 BP 122 / 82; Pulse 84; Resp 17; Temp 98; Pulse Ox 99% ; Pain 0/10; jj7 21:15 Body Mass Index 25.11 (79.38 kg, 177.8 cm) jj7 21:15 Pain Scale: Adult jj7 23:50 Pain Scale: Adult jj7 Darren Coma Score: 23:44 Eye Response: spontaneous(4). Motor Response: obeys commands(6). Verbal Response: sp4 oriented(5). Total: 15. MDM: 21:22 Patient medically screened. sp4 23:32 ED course: EXAM DESCRIPTION: RAD - Chest Single View - 07/10/2023 10:00 pm CLINICAL sp4 HISTORY: CHEST PAIN Chest pain. COMPARISON: Chest Single View dated 05/15/2023; Chest Single View dated 02/11/2022; Chest Single View dated 02/07/2022; Chest Single View dated 11/15/2021 FINDINGS: Portable technique limits examination quality. The lungs are grossly clear. The heart is normal in size. No displaced fractures. IMPRESSION: No acute intrathoracic process suspected. . 23:51 Differential diagnosis: Anxiety Reaction Bronchitis pneumonia, Psychogenic. Data sp4 reviewed: vital signs, nurses notes, lab test result(s), EKG, radiologic studies, plain films. ED course: Stable for discharge home. 07/09 21:37 Order name: T4 Free; Complete Time: 23:31 [facility] 07/09 21:37 Order name: TSH; Complete Time: 23:31 [facility] 07/09 21:37 Order name: Basic Metabolic Panel; Complete Time: 23:31 [facility] 07/09 21:37 Order name: CBC with Diff; Complete Time: 23:31 [facility] 07/09 21:37 Order name: D-Dimer; Complete Time: 23:31 07/09 21:37 Order name: LFT's; Complete Time: 23:31 [facility] 07/09 21:37 Order name: Magnesium; Complete Time: 23:31 [facility] 07/09 21:37 Order name: NT PRO-BNP; Complete Time: 23:31 4 07/09 21:37 Order name: PT-INR; Complete Time: 23:31 [facility] 07/09 21:37 Order name: Troponin HS; Complete Time: 23:31 [facility] 07/09 21:37 Order name: XRAY Chest (1 view); Complete Time: 23:31 07/09 21:37 Order name: Cardiac monitoring; Complete Time: 21:48 [facility] 07/09 21:37 Order name: EKG - Nurse/Tech; Complete Time: 22:06 [facility] 07/09 21:37 Order name: IV Saline Lock; Complete Time: 21:48 4 07/09 21:37 Order name: Labs collected and sent; Complete Time: 21:48 [facility] 07/09 21:37 Order name: O2 Per Protocol; Complete Time: 21:48 [facility] 07/09 21:37 Order name: O2 Sat Monitoring; Complete Time: 21:48 sp4 EC:44 Rate is 66 beats/min. Rhythm is regular, Normal Sinus Rhythm. QRS [place] is Normal. MD sp4 interval is normal. QRS interval is normal. QT interval is normal. No Q waves. T waves are Normal. No ST changes noted. Clinical impression: Normal ECG. Interpreted by me. Reviewed by me. Administered Medications: 21:49 Drug: Aspirin PO Chewable Tablet 324 mg PO once; 81 mg tablets x 4 Route: PO; rv 22:15 Follow up: Response: No adverse reaction jj7 21:49 Drug: Diazepam PO 10 mg PO once Route: PO; rv 23:50 Follow up: Response: Marked relief of symptoms; Anxiety decreased jj7 Disposition Summary: 07/10/23 23:40 Discharge Ordered Problem: new sp4 Symptoms: have improved sp4 Condition: Stable sp4 Diagnosis - Anxiety disorder, unspecified sp4 - Acute panic attack sp4 Followup: sp4 - With: Ankush Bro MD - When: 7 - 10 days - Reason: Recheck today's complaints Discharge Instructions: - Discharge Summary Sheet sp4 - Panic Attack, [id number]-ck-[id number] sp4 Forms: - Work release form jj7 - Patient Portal Instructions sp4 Prescriptions: - Valium 5 mg Oral tablet - take 1 tablet ORAL route once daily As needed PRN panic attacks; 10 tablet; sp4 Refills: 0, Product Selection Permitted Signatures: Dispatcher [employer] EDMS Umberto John RN RN Hortensia Martínez RN RN jj7 Sim Evans MD MD sp4 Corrections: (The following items were deleted from the chart) 21:38 21:37 BASIC METABOLIC PANEL+C.LAB.BRZ ordered. EDMS EDMS 21:38 21:37 CBC+H.LAB.BRZ ordered. EDMS EDMS 21:38 21:37 D-DIMER+COAG.LAB.BRZ ordered. EDMS EDMS 21:38 21:37 HEPATIC FUNCTION+C.LAB.BRZ ordered. EDMS EDMS 21:38 21:37 MAGNESIUM+C.LAB.BRZ ordered. EDMS EDMS 21:38 21:37 PROBNP+C.LAB.BRZ ordered. EDMS EDMS 21:38 21:37 PROTIME (+INR)+COAG.LAB.BRZ ordered. EDMS EDMS 21:37 Troponin High Sensitivity+C.LAB.BRZ ordered. EDMS EDMS 21:38 Chest Single View+RAD.RAD.BRZ ordered. EDMS EDMS
--- NOTE | 2023-07-10 23:41 | ER ---
Nurse's Notes [facility] Name: Azeem Singh Age: 32 yrs Sex: Male : 1990 Arrival Date: 07/10/2023 Time: 21:09 Bed 17 Private MD: Diagnosis: Anxiety disorder, unspecified;Acute panic attack Presentation: 07/09 21:15 Chief complaint: Patient states: SOB,CP THAT RADIATES TO HIS BACK. LEFT ARM NUMB AND jj7 TINGLING. Coronavirus screen: At this time, the client does not indicate any symptoms associated with coronavirus-19. Ebola Screen: No symptoms or risks identified at this time. Initial Sepsis Screen: Does the patient meet any 2 criteria? No. Patient's initial sepsis screen is negative. Does the patient have a suspected source of infection? No. Patient's initial sepsis screen is negative. Risk Assessment: Do you want to hurt yourself or someone else? Patient reports no desire to harm self or others. Onset of symptoms was July 10, 2023. 21:15 Method [facility] Arrival: [facility] 21:15 Acuity: [place] 3 jj7 Triage Assessment: 21:17 General: Appears in no apparent distress. comfortable, Behavior is cooperative, jj7 appropriate for age, anxious. Pain: Complains of pain in chest. Respiratory: No deficits noted. Reports shortness of breath Onset: The symptoms/episode began/occurred suddenly, the patient has mild shortness of breath. Historical: - Allergies: 21:17 No Known Allergies; jj7 - PMHx: 21:17 Anxiety; jj7 - PSHx: 21:17 None; jj7 - Immunization history:: Adult Immunizations not up to date. - Infectious Disease History:: Denies. - Social history:: Smoking status: Reported history of juuling and/or vaping. Patient/guardian denies using alcohol, street drugs. - Family history:: not pertinent. Screenin:19 [facility] ED Fall Risk Assessment (Adult) History of falling in the last 3 months, jj7 including since admission No falls in past 3 months (0 pts) Confusion or Disorientation No (0 pts) Intoxicated or Sedated No (0 pts) Impaired Gait No (0 pts) Mobility Assist Device Used No (0 pt) Altered Elimination No (0 pt) Score/Fall Risk Level 0 - 2 = Low Risk Oriented to surroundings, Maintained a safe environment, Educated pt \T\ family on fall prevention, incl call for assistance when getting out of bed. Abuse screen: Denies threats or abuse. Nutritional screening: No deficits noted. Tuberculosis screening: No symptoms or risk factors identified. Assessment: 21:50 General: Appears comfortable, Behavior is cooperative, anxious. Pain: Complains of pain rv in chest. Neuro: Level of Consciousness is awake, alert, obeys commands, Oriented to person, place, time, situation. Cardiovascular: Chest pain is located in chest wall. Respiratory: Airway is patent Respiratory effort is even, unlabored, Breath sounds are clear bilaterally. GI: No signs and/or symptoms were reported involving the gastrointestinal system. : No signs and/or symptoms were reported regarding the genitourinary system. Derm: Skin is intact. 22:15 Reassessment: RECEIVED PT REPORT FROM ROSITA YUN. ASSUMED CARE OF PT. PT SITTING IN BED jj7 TALKING TO GF. NO PAIN OR DISTRESS AT THIS TIME. VS STABLE. CALL BHATIA IN REACH. Vital Signs: 21:15 BP 137 / 89; Pulse 92; Resp 18; Temp 98; Pulse Ox 100% ; Weight 79.38 kg; Height 5 ft. jj7 10 in. ; Pain 5/10; 22:15 BP 115 / 77; Pulse 80; Resp 16; Pulse Ox 100% ; jj7 23:15 BP 126 / 73; Pulse 76; Resp 17; Pulse Ox 100% ; jj7 23:50 BP 122 / 82; Pulse 84; Resp 17; Temp 98; Pulse Ox 99% ; Pain 0/10; jj7 21:15 Body Mass Index 25.11 (79.38 kg, 177.8 cm) jj7 21:15 Pain Scale: Adult jj7 23:50 Pain Scale: Adult jj7 Beauty Coma Score: 23:44 Eye Response: spontaneous(4). Motor Response: obeys commands(6). Verbal Response: sp4 oriented(5). Total: 15. ED Course: 21:13 Patient arrived in ED. ra3 21:17 Triage completed. jj7 21:17 Arm band placed on left wrist. jj7 21:19 Patient has correct armband on for positive identification. Bed in low position. Call jj7 light in reach. Adult w/ patient. Provided Education on: CALL BHATIA USE. 21:21 Sim Evans MD is Attending Physician. sp4 21:40 Umberto John, RN is Primary Nurse. rv 21:48 Basic Metabolic Panel Sent. rv 21:48 CBC with Diff Sent. rv 21:48 D-Dimer Sent. rv 21:48 LFT's Sent. rv 21:48 Magnesium Sent. rv 21:48 NT PRO-BNP Sent. rv 21:49 PT-INR Sent. rv 21:49 Troponin HS Sent. rv 21:49 Initial lab(s) drawn, by ED staff, sent to lab. Inserted saline lock: 20 gauge in right rv antecubital area, using aseptic technique. Blood collected. 21:50 No provider procedures requiring assistance completed. rv 22:02 XRAY Chest (1 view) In Process Unspecified. EDMS 23:38 Ankush Bro MD is Referral Physician. sp4 23:50 IV discontinued, intact, bleeding controlled, No redness/swelling at site. Pressure jj7 dressing applied. Administered Medications: 21:49 Drug: Aspirin PO Chewable Tablet 324 mg PO once; 81 mg tablets x 4 Route: PO; rv 22:15 Follow up: Response: No adverse reaction jj7 21:49 Drug: Diazepam PO 10 mg PO once Route: PO; rv 23:50 Follow up: Response: Marked relief of symptoms; Anxiety decreased jj7 Medication: 21:50 VIS not applicable for this client. rv Outcome: 23:40 Discharge ordered by MD. sp4 23:50 Discharged to home ambulatory, with significant other, jj7 23:50 Condition: improved 23:50 Discharge instructions given to patient, Instructed on discharge instructions, follow up and referral plans. medication usage, Demonstrated understanding of instructions, follow-up care, medications, Prescriptions given X 1, 23:50 Patient left the ED. jj7 Signatures: Dispatcher [employer] EDCO Umberto John, RN RN rv Hortensia Dsouza RN RN jjSim Rome MD MD sp4 Victorina Noel ra3 Corrections: (The following items were deleted from the chart) 07/10 00:29 00:29 Patient left the ED. jj7 jj7
[2023-07-11 01:10] VITALS: BP 122/82; TEMP 98; O2SAT 99
--- NOTE | 2023-07-12 14:41 | EKG ---
Test Date: 2023-07-10 Test Time: 21:56:22 Acute Care Assistant: PACO MEASUREMENT RESULTS: Intervals: Rate: 66 SC: 138 QRSD: 88 QT: 366 QTc: 383 [place]: P: 65 SC: 138 QRS: 87 T: 65 INTERPRETIVE STATEMENTS: Normal sinus rhythm Normal ECG Compared to ECG 05/14/2023 23:45:50 Sinus arrhythmia no longer present Electronically Signed On 07-12-23 14:38:43 CDT by Sudheer Hoang
== END 2023-07-11 00:29 | disposition home or self-care (01) ==
LOC: ER 21:09
DX: F41.0 Panic disorder [episodic paroxysmal anxiety] (principal); F41.9 Anxiety disorder, unspecified
CPT/HCPCS: 36415; 71045; 80048; 80076; 83735; 83880; 84439; 84443; 84484; 85025; 85379; 85610; 93005; 99284

== ENCOUNTER 2024-04-06 23:03 | Emergency (ER) | payer OTHER ==
[2024-04-06] MEDS ORDERED: NA CHLORIDE 0.9% 1,000 ML ONE (23:40)
[2024-04-07 00:08] LABS: Absolute Eosinophils 0.1 K/uL (0-0.5); Absolute Lymphocytes (CBC) 2.4 K/uL (0.7-4.9); Absolute Monocytes 0.6 K/uL (0.1-1.3); Absolute Neutrophil 3.7 K/uL (1.8-8.0); Basophils % 0.4 % (0-1.3); Eosinophils % 1.9 % (0-4.4); Hematocrit 43.6 % (39.6-49.0); Hemoglobin 15.5 g/dL (13.6-17.9); Lymphocytes % 35.3 % (15.3-44.8); MCH 31.6 pg (27.0-35.0); MCHC 35.4 g/dL (32.0-36.0); MCV 89.3 fL (80-100); MPV 8.1 fL (7.6-11.3); Monocytes % 8.4 % (3.3-12.3); Nucleated Red Blood Cells % 0.2 % (0-0); Platelets 244 thou/uL (152-406); RBC Red Blood Cell Count 4.89 M/uL (4.33-5.43); Red Cell Distribution Width 12.3 % (12.1-15.2)
[2024-04-07 00:13] LABS: Specific Gravity 1.012 (1.005-1.030); Urine Bilirubin NEGATIVE (Negative); Urine Blood Negative (Negative); Urine Clarity Clear (Clear); Urine Color Light-Yellow (Yellow); Urine Glucose NEGATIVE (Negative); Urine Ketones NEGATIVE (Negative); Urine Microscopic Reflex YN NO UMIC; Urine Nitrite NEGATIVE (Negative); Urine Protein NEGATIVE (Negative); Urine Urobilinogen Normal (Normal)
[2024-04-07 00:20] LABS: ALT/SGPT 84 U/L (16-61); AST/SGOT 41 U/L (15-37); Albumin 3.8 g/dL (3.4-5.0); Albumin/Globulin Ratio 1.1 (1.1-1.8); Alkaline Phosphatase 72 U/L (45-117); Anion Gap 8.4 mEq/L (5.0-15.0); BUN Blood Urea Nitrogen 13 mg/dL (7-18); Bicarbonate 26 mEq/L (21-32); Bilirubin Direct 0.2 mg/dL (0-0.2); Bilirubin Indirect, Calculated 1.1 mg/dL (0.2-0.8); Bilirubin Total 1.3 mg/dL (0.2-1.0); Globulin 3.5 g/dL (2.3-3.5); Glomerular Filtration Rate 100 ml/min (=/>90); Glucose Level 118 mg/dL (74-106); Magnesium 2.2 mg/dL (1.6-2.4); NT PRO-BNP 6 pg/mL (<125); Potassium 3.4 mEq/L (3.5-5.1); Protein, Total 7.3 g/dL (6.4-8.2); Sodium Level 137 mEq/L (136-145)
[2024-04-07 00:21] LABS: Troponin High Sensitivity < 3.0 pg/mL (<58.9)
[2024-04-07 00:22] LABS: D-Dimer 0.41 FEUug/mL (0-0.500); PT Prothrombin Time 11.3 SECONDS (9.4-12.5); Protime INR 1.08
[2024-04-07 00:22] LABS: Barbiturates NEGATIVE (NEGATIVE); Benzodiazepines NEGATIVE (NEGATIVE); Cocaine NEGATIVE (NEGATIVE); METHAMPHETAM NEGATIVE (NEGATIVE); Methadone NEGATIVE (NEGATIVE); Opiates NEGATIVE (NEGATIVE); Phencyclidine NEGATIVE (NEGATIVE); THC Cannibis NEGATIVE (NEGATIVE)
--- NOTE | 2024-04-07 02:35 | ER ---
Nurse's Notes [facility] Name: Azeem Singh Age: 33 yrs Sex: Male : 1990 Arrival Date: 04/06/2024 Time: 23:03 Bed 6 Private MD: Diagnosis: Chest pain, unspecified;Palpitations;Abnormal results of liver function studies;Other cholelithiasis without obstruction Presentation: 04/06 23:32 Chief complaint: Intermittent left sided chest pain that radiates to left arm and SOB x hb 2-3 weeks, became worse and with dizziness 2-3 days ago. Hx of myocarditis and anxiety. Coronavirus screen: At this time, the client does not indicate any symptoms associated with coronavirus-19. Ebola Screen: No symptoms or risks identified at this time. Initial Sepsis Screen: Does the patient meet any 2 criteria? No. Patient's initial sepsis screen is negative. Does the patient have a suspected source of infection? No. Patient's initial sepsis screen is negative. Risk Assessment: Do you want to hurt yourself or someone else? Patient reports no desire to harm self or others. Onset of symptoms was March 18, 2024. 23:32 Method Of Arrival: Ambulatory hb 23:32 Acuity: [place] 3 hb Historical: - Allergies: 23:34 No Known Allergies; hb - Home Meds: 23:34 None [Active]; hb - PMHx: 23:34 Anxiety; Myocarditis; hb - PSHx: 23:34 None; hb - Immunization history:: Adult Immunizations up to date. - Infectious Disease History:: Denies. - Social history:: Smoking status: Patient/guardian denies using tobacco, Stopped _ months ago 6. Screenin:30 [facility] ED Fall Risk Assessment (Adult) History of falling in the last 3 months, br2 including since admission No falls in past 3 months (0 pts) Confusion or Disorientation No (0 pts) Intoxicated or Sedated No (0 pts) Impaired Gait No (0 pts) Mobility Assist Device Used No (0 pt) Altered Elimination No (0 pt) Score/Fall Risk Level 0 - 2 = Low Risk Oriented to surroundings. Abuse screen: Denies threats or abuse. Denies injuries from another. Nutritional screening: No deficits noted. Tuberculosis screening: No symptoms or risk factors identified. Assessment: 23:30 Reassessment: Patient and/or family updated on plan of care and expected duration. Pain br2 level reassessed. Patient is alert, oriented x 3, equal unlabored respirations, skin warm/dry/pink. General: Appears in no apparent distress. comfortable, Behavior is anxious. 23:30 Pain:. br2 23:30 Pain: Complains of pain in anterior aspect of left upper chest and left breast Pain br2 radiates to left scapular area and left subscapular area Pain currently is 2 out of 10 on a pain scale. Neuro: [place] Agitation-Sedation Scale (RASS): 0 - Alert and Calm Level of Consciousness is awake, alert, obeys commands, Oriented to person, place, time, situation, Reports dizziness, since 3 DAYS numbness in right hand, left hand, right arm and left arm. 04/07 00:06 Reassessment: No changes from previously documented assessment. Patient and/or family br2 updated on plan of care and expected duration. Pain level reassessed. Patient is alert, oriented x 3, equal unlabored respirations, skin warm/dry/pink. Vital Signs: 04/06 23:32 BP 123 / 88; Pulse 93; Resp 16; Temp 98.7(O); Pulse Ox 99% on R/A; Weight 77.11 kg; hb Height 5 ft. 9 in. ; Pain 6/10; 04/07 00:06 BP 116 / 79; Pulse 68; Resp 18; Pulse Ox 97% on R/A; br2 00:48 BP 109 / 79; Pulse 67; Resp 16; br2 01:49 BP 109 / 78; Pulse 73; Resp 18; Pulse Ox 98% ; cp4 02:46 BP 123 / 74; Pulse 85; Resp 18; Pulse Ox 97% ; br2 04/06 23:32 Body Mass Index 25.10 (77.11 kg, 175.26 cm) hb 04/06 23:32 Pain Scale: Adult hb ED Course: 04/06 23:06 Patient arrived in ED. gm2 23:09 Samir Gonzalez PA is PHCP. cp 23:09 Vinita Patel MD is Attending Physician. cp 23:30 Client placed on continuous cardiac and pulse oximetry monitoring. NIBP monitoring hb applied. solar energy engineer on. Pulse ox on. NIBP on. 23:30 Patient has correct armband on for positive identification. Bed in low position. Call br2 light in reach. Side rails up X 1. Provided Education on: PLAN OF CARE. 23:30 EKG done, by ED staff, reviewed by Samir CRUZ. hb 23:30 Inserted saline lock: 20 gauge in right antecubital area, using aseptic technique. br2 Blood collected. Flushed with 10 mL NS. 23:34 Triage completed. hb 23:35 Arm band placed on. hb 23:50 XRAY Chest (1 view) In Process Unspecified. EDMS 23:50 Rosy Mota, COURT is Primary Nurse. br2 04/07 02:21 Abdomen Exam Limited In Process Unspecified. EDMS 02:33 Sudheer Hoang MD is Referral Physician. cp 02:51 IV discontinued, intact, bleeding controlled, No redness/swelling at site. Pressure br2 dressing applied. Administered Medications: 04/06 23:42 Drug: NS 0.9% IV 1000 ml IV at 1000 ml once; to be given as a bolus over 60 minutes cp4 Route: IV; Rate: 1000 ml; Site: right antecubital; 04/07 02:48 Follow up: Response: No adverse reaction; IV Status: Completed infusion; IV Intake: br2 1000ml Intake: 02:48 IV: 1000ml; Total: 1000ml. br2 Outcome: 02:34 Discharge ordered by MD. cp 02:51 Discharged to home ambulatory, br2 02:51 Condition: good 02:51 Discharge instructions given to patient, Instructed on discharge instructions, follow up and referral plans. Demonstrated understanding of instructions, follow-up care, medications, 02:51 Patient left the ED. br2 Signatures: Dispatcher [employer] EDMS Samir Gonzalez PA PA cp Lisa Flynn, RN RN hb Judy Burns cp4 Sammi Evans gm2 Rosy Mota RN RN br2 Corrections: (The following items were deleted from the chart) 04/06 23:35 23:32 Chief complaint: Intermittent left sided chest pain that radiates to left arm and hb SOB x 2-3 weeks, became worse and with dizziness 2-3 days ago. Hx of myocarditis. hb
--- NOTE | 2024-04-07 02:35 | EDPHYS ---
Physician Documentation [facility] Name: Azeem Singh Age: 33 yrs Sex: Male : 1990 Arrival Date: 04/06/2024 Time: 23:03 Bed 6 Private MD: ED Physician Vinita Patel HPI: 04/06 23:36 This 33 yrs old Male presents to ER via Ambulatory with complaints of High heart rate, cp Palpitations. 23:36 The patient or guardian reports chest pain that is located primarily in the anterior cp chest wall, left. 23:36 The patient presents with a history of heart racing, heart skipping beats. Context: The cp symptoms occur at rest, with light activity. 23:36 Onset: The symptoms/episode began/occurred 3 week(s) ago, and became worse 3 day(s) ago.cp 23:36 Duration: The patient or guardian reports multiple episodes, that are intermittent. The cp chest pain is described as sharp. Historical: - Allergies: 23:34 No Known Allergies; hb - Home Meds: 23:34 None [Active]; hb - PMHx: 23:34 Anxiety; Myocarditis; hb - PSHx: 23:34 None; hb - Immunization history:: Adult Immunizations up to date. - Infectious Disease History:: Denies. - Social history:: Smoking status: Patient/guardian denies using tobacco, Stopped _ months ago 6. ROS: 23:40 Constitutional: Negative for body aches, chills, fever, poor PO intake, cp 23:40 Eyes: Negative for injury, pain, redness, and discharge, cp 23:40 ENT: Negative for drainage from ear(s), ear pain, sore throat, difficulty swallowing, difficulty handling secretions, 23:40 Cardiovascular: Positive for chest pain, palpitations, Negative for edema, 23:40 Respiratory: Negative for cough, wheezing, 23:40 Abdomen/GI: Negative for abdominal pain, vomiting, diarrhea, constipation, 23:40 Neuro: Negative for altered mental status, dizziness, headache, numbness, weakness, 23:40 All other systems are negative, Exam: 23:36 ECG was reviewed by the Attending Physician. cp 23:45 Constitutional: The patient appears in no acute distress, alert, awake, cp non-diaphoretic, non-toxic, well developed, well nourished, 23:45 Head/Face: Normocephalic, atraumatic. cp 23:45 Eyes: Periorbital structures: appear normal, Conjunctiva: normal, no exudate, no cp injection, Sclera: no appreciated abnormality, Lids and lashes: appear normal, bilaterally, 23:45 ENT: External ear(s): are unremarkable, Nose: is normal, Mouth: Lips: moist, Oral mucosa: moist, Posterior pharynx: Airway: no evidence of obstruction, patent, 23:45 Chest/axilla: Inspection: normal, Palpation: is normal, 23:45 Cardiovascular: Rate: normal, Rhythm: regular, 23:45 Respiratory: the patient does not display signs of respiratory distress, Respirations: normal, no use of accessory muscles, no retractions, labored breathing, is not present, Breath sounds: are clear throughout, no decreased breath sounds, no stridor, no wheezing, 23:45 Abdomen/GI: Inspection: abdomen appears normal, Palpation: abdomen is soft and non-tender, in all quadrants, 23:45 Neuro: Orientation: to person, place \T\ time. Mentation: is normal, Motor: moves all fours, Sensation: is normal, 04/07 00:10 ECG was reviewed by the Attending Physician. cp Vital Signs: 04/06 23:32 BP 123 / 88; Pulse 93; Resp 16; Temp 98.7(O); Pulse Ox 99% on R/A; Weight 77.11 kg; hb Height 5 ft. 9 in. ; Pain 6/10; 04/07 00:06 BP 116 / 79; Pulse 68; Resp 18; Pulse Ox 97% on R/A; br2 00:48 BP 109 / 79; Pulse 67; Resp 16; br2 01:49 BP 109 / 78; Pulse 73; Resp 18; Pulse Ox 98% ; cp4 02:46 BP 123 / 74; Pulse 85; Resp 18; Pulse Ox 97% ; br2 04/06 23:32 Body Mass Index 25.10 (77.11 kg, 175.26 cm) hb 04/06 23:32 Pain Scale: Adult hb MDM: 04/06 23:17 Medical Screening Exam initiated cp 04/07 02:33 Data reviewed: vital signs, nurses notes, lab test result(s), EKG, radiologic studies, cp plain films, ultrasound, and as a result, I will discharge patient. 02:33 Differential diagnosis: acute myocardial infarction, cholecystitis, Cholelithiasis cp costochondritis, arrythmia, dehydration, stress disorder, pancreatitis, pericarditis, pleurisy, pneumonia, pneumothorax, pulmonary embolus. Independent interpretation of the following test(s) in the Emergency Department EKG: See my EKG interpretation above. Counseling: I had a detailed discussion with the patient and/or guardian regarding the historical points, exam findings, and any diagnostic results supporting the discharge/admit diagnosis, lab results, radiology results, the need for outpatient follow up, a crowning inspector, to return to the emergency department if symptoms worsen or persist or if there are any questions or concerns that arise at home. Response to treatment: the patient's symptoms have mildly improved after treatment, and as a result, I will discharge patient. 04/06 23:18 Order name: UDS; Complete Time: 00:55 04/06 23:18 Order name: Urinalysis w/ reflexes; Complete Time: 00:13 cp 04/07 00:13 Interpretation: Reviewed. 04/06 23:34 Order name: Basic Metabolic Panel; Complete Time: 00:55 cp 04/07 00:55 Interpretation: Normal except: K 3.4; GLUC 118. cp 04/06 23:34 Order name: CBC with Diff; Complete Time: 00:13 cp 04/07 00:14 Interpretation: Reviewed. 04/06 23:34 Order name: D-Dimer; Complete Time: 00:55 cp 04/06 23:34 Order name: LFT's; Complete Time: 00:55 cp 04/07 00:56 Interpretation: Normal except: AST 41; ALT 84; BILIT 1.3; IBILI, CALC 1.1. cp 04/06 23:34 Order name: Magnesium; Complete Time: 00:55 cp 04/06 23:34 Order name: NT PRO-BNP; Complete Time: 00:55 cp 04/06 23:34 Order name: PT-INR; Complete Time: 00:55 cp 04/06 23:34 Order name: Troponin HS; Complete Time: 00:55 cp 04/07 01:18 Order name: Troponin High Sensitivity; Complete Time: 02:36 cp 04/06 23:34 Order name: XRAY Chest (1 view) cp 04/07 02:06 Order name: Abdomen Exam Limited EDMS 04/06 23:18 Order name: EKG; Complete Time: 23:19 cp 04/06 23:18 Order name: EKG - Nurse/Tech; Complete Time: 00:09 cp 04/06 23:34 Order name: Cardiac monitoring; Complete Time: 00:09 cp 04/06 23:34 Order name: IV Saline Lock; Complete Time: 00:09 cp 04/06 23:34 Order name: Labs collected and sent; Complete Time: 00:09 cp 04/06 23:34 Order name: O2 Per Protocol; Complete Time: 00:09 cp 04/06 23:34 Order name: O2 Sat Monitoring; Complete Time: 00:09 cp EC/27 23:36 Rate is 86 beats/min. Rhythm is regular. TX interval is normal. QRS interval is normal. cp QT interval is normal. T waves are Inverted in lead aVR. Interpreted by me. Reviewed by me. 04/07 00:10 Rate is 77 beats/min. Rhythm is regular. TX interval is normal. QRS interval is normal. cp QT interval is normal. T waves are Inverted in lead aVR. Interpreted by me. Reviewed by me. Administered Medications: 04/06 23:42 Drug: NS 0.9% IV 1000 ml IV at 1000 ml once; to be given as a bolus over 60 minutes cp4 Route: IV; Rate: 1000 ml; Site: right antecubital; 04/07 02:48 Follow up: Response: No adverse reaction; IV Status: Completed infusion; IV Intake: br2 1000ml Disposition Summary: 04/07/24 02:34 Discharge Ordered Notes: Location: Home cp Problem: new cp Symptoms: have improved cp Condition: Stable cp Diagnosis - Chest pain, unspecified cp - Palpitations cp - Abnormal results of liver function studies cp - Other cholelithiasis without obstruction cp Followup: cp - With: Private Physician - When: 1 week - Reason: recheck blood work Followup: cp - With: Sudheer Hoang MD - When: 5 - 6 days - Reason: palpitations, chest pain Discharge Instructions: - Discharge Summary Sheet cp - Nonspecific Chest Pain, Adult cp - Palpitations cp - Cholelithiasis cp - Aspirin and Your Heart cp - Liver Function Tests cp Forms: - Medication Reconciliation Form cp - Antibiotic Education cp - Prescription Opioid Use cp - Patient Portal Instructions cp - Leadership Thank You Letter cp Signatures: Dispatcher [employer] EDMS Samir Gonzalez PA PA cp Lisa Flynn, RN RN Judy Richter cp4 Rosy Mota RN br2 Corrections: (The following items were deleted from the chart) 04/06 23:34 23:34 BASIC METABOLIC PANEL+C.LAB.BRZ ordered. EDMS EDMS 23:34 23:34 CBC+H.LAB.BRZ ordered. EDMS EDMS 23:34 23:34 D-DIMER+COAG.LAB.BRZ ordered. EDMS EDMS 23:34 23:34 HEPATIC FUNCTION+C.LAB.BRZ ordered. EDMS EDMS 23:34 23:34 MAGNESIUM+C.LAB.BRZ ordered. EDMS EDMS 23:34 23:34 PROBNP+C.LAB.BRZ ordered. EDMS EDMS 23:34 23:34 PROTIME (+INR)+COAG.LAB.BRZ ordered. EDMS EDMS 23:34 23:34 Troponin High Sensitivity+C.LAB.BRZ ordered. EDMS EDMS 04/07 02:21 02:05 Abdomen Limited+US.RAD.BRZ ordered. EDMS EDMS
--- NOTE | 2024-04-07 03:38 | RAD REPORT ---
EXAM: US Abdomen Limited, Gallbladder CLINICAL HISTORY: pain TECHNIQUE: Real-time ultrasound of the right upper quadrant with image documentation. COMPARISON: No relevant prior studies available. FINDINGS: Gallbladder: Small gallstone at the level of the gallbladder neck. Additional 4 mm echogenic focus abutting the anterior gallbladder wall which may reflect an adherent gallstone versus gallbladder polyp. No gallbladder wall thickening or pericholecystic fluid. cytogenetic technologist noted a sonog raphic negative Mckenna's sign. Common bile duct: Unremarkable as visualized. No stones. No dilation. IMPRESSION: Cholelithiasis without secondary signs to suggest acute cholecystitis. Electronically signed by: Chi Sharif MD 04/07/2024 03:27 AM [facility] Due to temporary technical issues with the PACS/TravelZeek[employer] reporting system, reports are being signed by the in-house radiologist without review as a courtesy to ensure prompt reporting the interpreting radiologist is fully responsible for the content of the report. Transcribed Date/Time: 04/07/2024 3:38 AM
--- NOTE | 2024-04-07 06:27 | RAD REPORT ---
EXAM DESCRIPTION: XR CHEST 1 VIEW CLINICAL HISTORY: Chest pain. COMPARISON: XR Chest 07/10/2023 (report only) FINDINGS: Cardiac silhouette is within normal limits. EKG leads project over the chest. There is no focal paren chymal or pleural disease. There is no acute osseous process visualized. IMPRESSION: No evidence of acute cardiopulmonary disease. Electronically signed by: Abdullahi Encinas MD 04/07/2024 12:34 AM [facility] Due to temporary technical issues with the PACS/HelpMeNow reporting system, reports are being preeti d by the in-house radiologist without review as a courtesy to ensure prompt reporting the interpreting radiologist is fully responsible for the content of the report. Transcribed Date/Time: 04/07/2024 6:27 AM
[2024-04-07 10:13] VITALS: TEMP 98.7
[2024-04-07 10:18] VITALS: BP 123/74; O2SAT 97
--- OUTSIDE RECORDS SUMMARY | 2024-04-08 02:08 | XMS REPORT | Continuity of Care Document ---
Author Name Unknown Address [address] [place] [address] [facility] thconnect Address [address] [place] [address] Care Team Providers Care Diagnostic Imaging Manager Name Role Phone PCP, PATIENT DOES NOT HAVE A Primary Care Physic suzanne Unavailable EMILE KAPOOR Attending Clinician Unavailable BRADY ROUSSEAU.HFred Attending Clinician UnavailTEREZA Harden Attending Clinician UnaDavid Nuno MD Attending Clinician [phone] DAVID RM Attending Clinician Unavailable [facility]ending Clinician Unavailable Court Bains MD Attending Clinician [phone] [address] BAINS Attending Clinician Unavailable Brady Rousseau MD K.H. Attending Clinician [phone] Doctor Unassigned, [place] Attending Clinician U Ernst Izaguirre MD Attending Clinician [phone] ERNST HENLEY Attending Clinician Unavailable ERNST HENLEY Admitting Clinician Unavailable Allergies, Adverse Reactions, Alerts Allergy Name Allergy Type Status Severity Reaction(s) Onset Date Inactive Date Treating Clinician Comments Source NO KNOWN ALLERGIE S Drug Class Active Univers [facility] Social History Social Habit Start Date Stop Date Quantity Comments Source Sexual orientation U [facility] Exposure to SARS-CoV-2 (event) 2022-07-02 00:00:00 2022-07-12 09:45:[address] [facility] Sex Assigned At 1990 00:00:00 1990 00:00:00 [facility] Smoking Status Start Date Stop Date Source Tobacco smoking consumption unknown [facility] Medications Ordered Medication Name Filled Medication Name Start Date Stop Date Current Medication? Ordering Clinician Indication Dosage Frequency Signature (SIG) Comments Components Source gabapentin 300 mg capsule 03-12 00:00: 00 06-10 04:59 :00 No [id number] 600mg Take 2 capsules by mouth in the morning and 2 capsules at noon and 2 capsules in the evening. Do all this for 90 days. [facility] ondansetron (ZOFRAN) 4 mg tablet 2022-03 00:00: 00 03-14 05:59 :00 No [id number] 4mg Take 1 tablet by mouth every 12 (twelve) hours for 7 days. [facility] HYDROcodone -acetaminop hen 5-325 mg tablet 2022-03 00:00: 00 03-14 05:59 :00 No [id number] 1{tbl} Take 1 tablet by mouth every 6 (six) hours as needed for Pain (scale 7-10) for up to 7 days. Indication s: acute pain [facility] gabapentin 300 mg capsule 2022-03 00:00: 00 03-12 00:00 :00 No [id number] 300mg Take 1 capsule by mouth in the morning and 1 capsule at noon and 1 capsule in the evening. Do all this for 7 days. [facility] Vital Signs Vital Name Observation Time Observation Value Comments S ource Systolic blood pressure 2023-03-12 18:36:00 119 mm[Hg] [facility] Diastolic blood pressure 2023-03-12 18:36:00 74 mm[Hg] [facility] Heart rate 2023-03-12 18:36:00 76 /min [facility] Body temperature 2023-03-12 18:36:[address] [facility] Respiratory rate 2023-03-12 18:36:00 14 /min [facility] Body weight 2023-03-12 18:36:00 82.101 kg [facility] BMI 2023-03-12 18:36:00 26.73 kg/m2 [facility] Oxygen saturation in Arterial blood by Pulse oximetry 2023-03-12 18:36:00 100 /min [facility] Systolic blood pressure 2023-03-06 18:20:00 124 mm[Hg] [facility] Diastolic blood pressure 2023-03-06 18:20:00 79 mm[Hg] [facility] Heart rate 2023-03-06 18:20:00 72 /min [facility] Body temperature 2023-03-06 18:20:[address] [facility] Respiratory rate 2023-03-06 18:20:00 14 /min [facility] Body weight 2023-03-06 18:20:00 83.008 kg [facility] BMI 2023-03-06 18:20:00 27.02 kg/m2 [facility] Oxygen saturation in Arterial blood by Pulse oximetry 2023-03-06 18:20:00 98 /min [facility] Systolic blood pressure 2022-07-12 15:02:00 113 mm[Hg] [facility] Diastolic blood pressure 2022-07-12 15:02:00 77 mm[Hg] [facility] Heart rate 2022-07-12 15:02:00 74 /min [facility] Body temperature 2022-07-12 15:02:[address] [facility] Body height 2022-07-12 15:02:00 175.3 cm [facility] Body weight 2022-07-12 15:02:00 78.563 kg [facility] BMI 2022-07-12 15:02:00 25.58 kg/m2 [facility] Oxygen saturation in Arterial blood by Pulse oximetry 2022-07-12 15:02:00 97 /min [facility] Systolic blood pressure 2022-06-08 03:19:47 121 mm[Hg] [facility] Diastolic blood pressure 2022-06-08 03:19:47 71 mm[Hg] [facility] Heart rate 2022-06-08 03:19:47 75 /min [facility] Body temperature 2022-06-08 03:19:[address] [facility] Respiratory rate 2022-06-08 03:19:47 16 /min [facility] Oxygen saturation in Arterial blood by Pulse oximetry 2022-06-08 03:19:47 97 /min [facility] Body height 2022-06-08 00:02:00 175.3 cm [facility] Body weight 2022-06-08 00:02:00 77.111 kg [facility] BMI 2022-06-08 00:02:00 25.10 kg/m2 [facility] Procedures Procedure Date / Time Performed Performing Clinician Source REFERRAL OCCUPATIONAL THERAPY 2023-03-12 00:00:[address] [facility] CONSENT/REFUSAL FOR DIAGNOSIS AND TREATMENT 2022-07-12 14:46:25 Doctor Unassigned, Dows [facility] EKG-12 LEAD 2022-06-08 03:13:49 Ernst Henley [facility] TROPONIN I 2022-06-08 01:20:00 Ernst Henley [facility] COMP. METABOLIC PANEL (01552) 2022-06-08 01:20:[address] [facility] URINE DRUG (IMMUNOASSAY) - COMPREHENSIVE DRUG SCREEN 2022-06-08 01:20:[address] [facility] CBC WITH DIFF 2022-06-08 01:20:00 Ernst Henley [facility] D-DIMER 2022-06-08 01:20:00 Ernst Henley [facility] N-TERMINAL PRO-BNP 2022-06-08 01:20:[address] [facility] NOTICE OF PRIVACY PRACTICES 2022-06-07 23:58:59 Doctor Unassigned, Dows [facility] CONSENT/REFUSAL FOR DIAGNOSIS AND TREATMENT 2022-06-07 23:58:28 Doctor Unassigned, Dows [facility] Encounters Start Date/Time End Date/Time Encounter Type Admission Type Attending Clinicians Care Facility Care Department Encounter ID Source 2023-03-29 11:06:23 2023-03-29 11:06:23 Outpatient R TEREZA SANTANA [facility] [id number] [facility] 2023-03-12 11:51:06 2023-03-12 23:59:00 [facility] [id number] 350.1.13.10 4.2.7.2.686 [id number] [facility] 2023-03-12 11:51:06 2023-03-12 23:59:00 Outpatient R DAVID RM [facility] [id number] [facility] 2023-03-12 13:00:00 2023-03-12 14:00:00 Ancillary Visit Room, Randi-Occup Therapy [facility] [id number] 350.1.13.10 4.2.7.2.686 [id number] [facility] 2023-03-12 13:00:00 2023-03-12 13:00:00 [facility] [id number] 2023-03-06 12:01:15 2023-03-06 23:59:00 Outpatient R DAVID RM [facility] [id number] [facility] 2023-03-06 12:01:15 2023-03-06 23:59:00 Hospital Encounter David Rm [facility] 1.2840.114 350.1.13.10 4.2.7.2.686 [id number] [facility] 2023-03-06 11:00:00 2023-03-06 12:00:00 Ancillary Visit Room, Randi-Occup Therapy [facility] [id number] 350.1.13.10 4.2.7.2.686 [id number] [facility] 2023-03-06 11:00:00 2023-03-06 11:00:[address] [facility] [id number] [facility] 2022-08-08 10:00:00 2022-08-08 10:00:00 Outpatient R BRADY ROUSSEAU [facility] [id number] [facility] 2022-07-12 10:00:00 2022-07-12 10:22:01 Outpatient R BRADY ROUSSEAU [facility] [id number] [facility] 2022-07-12 10:00:00 2022-07-12 10:22:01 [facility] [id number] 350.1.13.10 4.2.7.2.686 [id number] [facility] 2022-07-12 00:00:00 2022-07-12 00:00:00 Orders Only Doctor Unassigned, Dows [facility] [id number] 350.1.13.10 4.2.7.2.686 [id number] [facility] 2022-06-07 19:10:00 2022-06-07 22:30:00 Emergency Ernst Henley [facility] [id number] 350.1.13.10 4.2.7.2.686 [id number] [facility] 2022-06-07 19:10:00 2022-06-07 22:30:00 Emergency X ERNST HENLEY [facility] ERT [id number] [facility] Results Test Description Test Time Test Comments Results Resul t Comments Source CONSULT/REFERRAL OCCUPATIONAL THERAPY Preferred location: [facility] 2023-03-12 00:00:00 Consult received and chart reviewed via [employer]. ?Please refer to progress note for details. Maco [id number] silverio. [facility] [id number] 02:12:38* Test Item Value Reference Range Interpretation Comme nts TROPONIN I (test code = 8034522323) 0.000 ng/mL <=0.034 LEV (test code = [...] of biotin. Lab Interpretation (test code = 08421-3) Normal [facility]. METABOLIC PANEL (00049)2022-06-08 01:58:56* Test Item Value Reference Range Interpretation Comme nts NA (test code = 5469681818) 139 mmol/L 135-145 K (test code = 0448191218) 4.0 mmol/L 3.5-5.0 CL (test code = 1135708647) 100 mmol/L 98-108 CO2 TOTAL (test code = 7108158464) 31 mmol/L 23-31 AGAP (test code = 8786091194) 8 2-16 BUN (test code = 6004806537) 12 mg/dL 7-23 GLUCOSE (test code = 5596409246) 69 mg/dL 70-110 L CREATININE (test code = 1846840173) 0.86 mg/dL 0.60-1.25 TOTAL BILI (test code = 7914040678) 1.2 mg/dL 0.1-1.1 H CALCIUM (test code = 9247463818) 9.1 mg/dL 8.6-10.6 T PROTEIN (test code = 7634630481) 7.5 g/dL 6.3-8.2 ALBUMIN (test code = 2915282444) 4.5 g/dL 3.5-5.0 ALK PHOS (test code = 2572071068) 51 U/L 34-122 ALTv (test code = 1742-6) 30 U/L 5-50 AST(SGOT) (test code = 6548483256) 27 U/L 13-40 eGFR (test code = 0508786113) 103.1 mL/min/1.73m2 LEV (test code = LEV) [...] imaging tests). Lab Interpretation (test code = 09973-9) [facility]normal [id number] 01:56:34* Test Item Value Reference Range Interpretation Comments D-DIMER (test code = 7923329946) 0.39 See_Comment [Automated message] The system which [...] a diagnosis. Lab Interpretation (test code = 92225-0) Normal [facility] WITH [id number] 01:45:34* Test Item Value Reference Range Interpretation Comme nts WBC (test code = 6690-2) 6.73 See_Comment [Automated [employer] Brayola] The system which generated this result transmitted reference range: 4.20 - 10.70 10*3/?L. The reference range was not used to interpret this result as normal/abnormal. RBC (test code = 789-8) 4.74 See_Comment [Automated [employer] Brayola] The system which generated this result transmitted [...] 34.0 g/dL 31.2-35.0 RDW-SD (test code = 47005-0) 39.5 fL 38.5-51.6 RDW-CV (test code = 788-0) 11.6 % 12.1-15.4 L PLT (test code = 777-3) 257 See_Comment [Automated [employer] Brayola] The system which generated this result transmitted reference range: 150 - 328 10*3/?L. The reference range was not used to interpret this result as normal/abnormal. MPV (test code = 16250-0) 10.0 fL 9.8-13.0 NRBC/100 WBC (test code = 0379474330) 0.0 See_Comment [Automated me ssage] The system which generated this result transmitted reference range: 0.0 - 10.0 /100 WBCs. The reference range was not used to interpret this result as normal/abnormal. NRBC x10^3 (test code = 4066427451) See_Comment [Automated messa ge] The system which generated this result transmitted reference range: 10*3/?L. The reference range was not used to interpret this result as normal/abnormal. GRAN MAT (NEUT) % (test code = 770-8) 64.5 % IMM GRAN % (test code = 6622305519) 0.30 % LYMPH % (test code = 736-9) 23.2 % MONO % (test code = 5905-5) 7.7 % EOS % (test code = 713-8) 3.4 % BASO % (test code = 706-2) 0.9 % GRAN MAT x10^3(ANC) (test code = 4144400569) 4.34 10*3/uL 1.99-6.95 IMM GRAN x10^3 (test code = 5835217265) 0.00-0.06 LYMPH x10^3 (test code = 731-0) 1.56 10*3/uL 1.09-3.23 MONO x10^3 (test code = 742-7) 0.52 10*3/uL 0.36-1.02 EOS x10^3 (test code = 711-2) 0.23 10*3/uL 0.06-0.53 BASO x10^3 (test code = 704-7) 0.06 10*3/uL 0.01-0.09 Lab Interpretation (test code = 36726-0) Abnormal [facility]
--- NOTE | 2024-04-08 12:32 | EKG ---
Test Date: 2024-04-06 Test Time: 23:29:40 Sap Sd Analyst: HB MEASUREMENT RESULTS: Intervals: Rate: 86 RI: 136 QRSD: 80 QT: 338 QTc: 404 [place]: P: 53 RI: 136 QRS: 79 T: 55 INTERPRETIVE STATEMENTS: Normal sinus rhythm with sinus arrhythmia Normal ECG Compared to ECG 07/10/2023 21:56:22 No significant changes Electronically Signed On 04-08-24 12:30:05 [employer]OLOGY [employer] MEMBER by Lawrence Hernandes
== END 2024-04-07 02:51 | disposition home or self-care (01) ==
LOC: ER 23:03
DX: R07.89 Other chest pain (principal); R00.2 Palpitations; K80.80 Other cholelithiasis without obstruction; R94.5 Abnormal results of liver function studies
CPT/HCPCS: 96361; 93005 ×2; 85025; 80048; 36415 ×2; 83735; 85610; 85379; 80076; 81003; 84484 ×2; 83880; 80307; 71045; 76705; 96360; 99285; J7030